=== PATIENT | female | born 1950 | race Caucasian/White ===

== ENCOUNTER 2021-11-11 10:50 | Inpatient (IN) | payer OTHER ==
[~2021-11-11] VITALS: Ht 162.6 cm; Wt 67.1 kg
[2021-11-11] MEDS ORDERED: ASPI-630 PO (11:21)
[2021-11-11] MEDS ORDERED: CETI10TA16 PO (11:21)
[2021-11-11] MEDS ORDERED: DIPH25TA26 PO (11:21)
[2021-11-11] MEDS ORDERED: DULO60CA7 PO (11:21)
[2021-11-11] MEDS ORDERED: ARIP10TA9 PO (11:21)
[2021-11-11] MEDS ORDERED: ACET325T21 PO (11:21)
[2021-11-11] MEDS ORDERED: CALC11776 PO (11:44)
[2021-11-11] MEDS ORDERED: LEVE500T56 PO (11:44)
[2021-11-11] MEDS ORDERED: SELE120S2 TP (11:44)
[2021-11-11] MEDS ORDERED: RIVA20TA2 PO (11:44)
[2021-11-11] MEDS ORDERED: OMEP20TA63 PO (11:44)
[2021-11-11] MEDS ORDERED: SENN1TAB99 PO (11:44)
[2021-11-11] MEDS ORDERED: SITA50TA PO (11:44)
[2021-11-11] MEDS ORDERED: METF10007 PO (11:44)
[2021-11-11] MEDS ORDERED: LEVO100T5 PO (11:44)
[2021-11-11] MEDS ORDERED: MAGN24003 PO (11:44)
[2021-11-11 14:27] VITALS: BP 124/70
[2021-11-11] MEDS ORDERED: METHYL SALICYLATE/MENTHOL TOPICAL OINTMENT 57GM TUBE. TP PRN (15:15)
[2021-11-11] MEDS ORDERED: MAG HYDROX/AL HYDROX/SIMETH 30 ML ORAL.SUSP PO PRN (15:15)
[2021-11-11] MEDS ORDERED: ACETAMINOPHEN 325 MG TABLET PO PRN (15:15)
[2021-11-11] MEDS ORDERED: MAGNESIUM HYDROXIDE 2,400 MG/30 ML ORAL.SUSP. PO PRN (15:15)
[2021-11-11 15:42] VITALS: BP 124/70
[2021-11-11] MEDS ORDERED: CALCIUM CARBONATE 500 MG TAB.CHEW PO PRN (15:45)
[2021-11-11 16:36] LABS: BASO # 0.1 x10^3/uL (0.0-0.2); BASO % 1 % (0-3); EOS # 0.2 x10^3/uL (0.0-0.7); EOS % 2 % (0-3); HEMATOCRIT 42.6 % (36.0-47.0); HEMOGLOBIN 13.9 g/dL (12.0-15.5); LYMPH % 22 % (24-48); MEAN CORPUSCULAR HEMOGLOBIN 29 pg (25-35); MEAN CORPUSCULAR HGB CONC 33 g/dL (31-37); MEAN CORPUSCULAR VOLUME 88 fL (79-100); MONO # 0.7 x10^3/uL (0.0-1.1); MONO % 8 % (0-9); NEUT % 67 % (31-73); PLATELET COUNT 221 x10^3/uL (140-400); RED BLOOD COUNT 4.83 x10^6/uL (3.50-5.40); RED CELL DISTRIBUTION WIDTH 13.5 % (11.5-14.5)
[2021-11-11 16:50] LABS: ALBUMIN 3.1 g/dL (3.4-5.0); ALBUMIN/GLOBULIN RATIO 0.8 (1.0-1.7); CALCIUM 9.9 mg/dL (8.5-10.1); MAGNESIUM 1.9 mg/dL (1.8-2.4); POTASSIUM 3.7 mmol/L (3.5-5.1); TOTAL BILIRUBIN 0.1 mg/dL (0.2-1.0); TOTAL PROTEIN 7.2 g/dL (6.4-8.2)
[2021-11-11] MEDS: NYSTATIN TOPICAL POWDER 15GM BOTTLE. TP SCH (20:15)
[2021-11-11] MEDS: SENNOSIDES/DOCUSATE 8.6/50MG TABLET. PO SCH ×2 (20:15→21:00)
[2021-11-11] MEDS: DULoxetine HCL 60 MG CAPSULE.DR PO SCH ×2 (20:15→21:00)
[2021-11-11] MEDS: levETIRAcetam 500 MG TABLET PO SCH (20:15)
[2021-11-11] MEDS: ARIPiprazole 10 MG TABLET PO SCH (20:15)
[2021-11-11] MEDS: diphenhydrAMINE HCL 25 MG CAPSULE PO PRN (20:23)
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
[2021-11-12] MEDS: LEVOTHYROXINE 100 MCG TABLET PO SCH (05:24)
[2021-11-12 05:57] VITALS: BP 103/67
[2021-11-12] MEDS: PANTOPRAZOLE 40 MG TABLET. PO SCH ×2 (07:30→08:29)
[2021-11-12] MEDS: CETIRIZINE HCL 10 MG TABLET PO SCH ×2 (08:29→09:00)
[2021-11-12] MEDS: DULoxetine HCL 60 MG CAPSULE.DR PO SCH ×3 (08:29→09:08)
[2021-11-12] MEDS: ASPIRIN CHEWABLE 81 MG TABLET. PO SCH ×2 (08:29→09:00)
[2021-11-12] MEDS: SENNOSIDES/DOCUSATE 8.6/50MG TABLET. PO SCH ×3 (08:30→19:43)
[2021-11-12] MEDS: RIVAROXABAN 10 MG TABLET. PO SCH ×2 (08:30→09:00)
[2021-11-12] MEDS: levETIRAcetam 500 MG TABLET PO SCH ×3 (08:30→19:44)
[2021-11-12] MEDS: NYSTATIN TOPICAL POWDER 15GM BOTTLE. TP SCH ×3 (08:31→09:09)
[2021-11-12] MEDS: LINAGLIPTIN 5 MG TABLET PO SCH (09:00)
[2021-11-12 16:24] VITALS: BP 95/60
[2021-11-12 16:54] LABS: CHOLESTEROL/HDL RATIO 8.3; HDLC 27 mg/dL (40-60); THYROID STIM HORMONE (TSH) 5.423 uIU/mL (0.358-3.740); TRIGLYCERIDES 536 mg/dL (0-150); VLDLC 107 mg/dL (0-40)
[2021-11-12] MEDS ORDERED: traZODone 50 MG TABLET. PO PRN (17:15)
[2021-11-12] MEDS: metFORMIN 500 MG TABLET PO SCH (17:30)
[2021-11-12] MEDS: CHOLECALCIFEROL (VITAMIN D3) 50,000 UNIT CAPSULE PO SCH (18:00)
--- NOTE | 2021-11-12 19:16 | EKG ---
[address] [address] Test Date: 2021-11-11 Test Time: 20:29:28 Pat Name: FAHEEM BACON Department: Room: [address] [place] [address] Gender: F First Cook: : 1950 Requested By: JULIANE TOTH Order Number: [id number] Reading MD: Magan Rojo Measurements Intervals [place] Rate: 76 P: MD: QRS: 52 QRSD: 74 T: -41 QT: 362 QTc: 411 Interpretive Statements SINUS RHYTHM LOW LIMB LEAD VOLTAGE T ABNORMALITY IN ANTERIOR LEADS INFEROLATERAL LEADS ABNORMAL ECG RI6.01 No previous ECG available for comparison Electronically Signed On 11-13-2021 13:07:06 PHYSICAL THERAPY NURSE by Magan Rojo
[2021-11-12] MEDS: ARIPiprazole 10 MG TABLET PO SCH (19:44)
--- NOTE | 2021-11-12 23:50 | PN ---
DATE: 11/12/2021 SUBJECTIVE: The patient was seen today, met with the staff. Chart was reviewed and also covering for Dr. Robertson. Staff continues to report that she is noncommunicative most of the time except for monosyllabic answers. The patient tends to isolate herself in her room. The patient apparently has some involuntary movements and myoclonic jerks. The patient appears to be confused, but staff reports sometimes she is clear when she talks, able to let the staff know her needs. Also, report from the residential, the patient's behavior is mostly behavioral and not presented with any major medical issues when she was there. OBSERVATION: VITAL SIGNS: Temperature 97.2, blood pressure 103/67, pulse 65, respirations 18, O2 sat 95%. Slept about 3 hours last night. LABORATORY DATA: The patient's lab reviewed. Blood glucose was 196, BUN 24. Iron 32. Triglycerides 536. Cholesterol 223, HDL 27. CURRENT MEDICATIONS: Trazodone 50 mg at night p.r.n., Cymbalta 60 mg twice a day, Abilify 10 mg at night. The patient is not having any side effects to medications. The patient continues to exhibit behaviors including social isolation, staying in bed, poor eye contact and not wanting to communicate. The patient had problems with her speech. The patient's family, apparently she has 3 siblings. The patient apparently moved here 3 years ago from [place]. The patient apparently has been having problems with anxiety since his 30s. The patient has 5 sons. The patient was a smoker, used to smoke about 2-1/2 packs daily. The patient apparently had different jobs in the past and no history of any other substance abuse. ASSESSMENT: 1. Major depressive disorder, recurrent, moderate to severe. 2. Cognitive disorder, mild. 3. Mood disorder, unspecified. PLAN: Continue with the current treatment plan. LENGTH OF STAY: 7-[address]: Karime TID: [id number]
--- NOTE | 2021-11-12 23:57 | CONS ---
DATE OF CONSULTATION: 11/12/2021 REASON FOR CONSULTATION: Medical management. HISTORY OF PRESENT ILLNESS: The patient is a 71-year-old female patient, a resident at [facility] where she has been a resident for the past 2 years. The patient apparently has been refusing to eat, refusing to her medications, withdrawn with marked psychomotor retardation, depressed, sleeping up to 12 hours a day. The patient has refused to answer any of my questions, was sitting in her wheelchair, eating her dinner and asked to go back to bed and has not answered any of my questions. She was clearly irritable and scratching her head, and moving her right lower extremity constantly. Whether this is some kind of behavior or need to look into her more closely is remains to be determined. PAST MEDICAL HISTORY: Significant for chronic obstructive pulmonary disease, hypertension, history of cerebrovascular accident, type 2 diabetes mellitus, hyperlipidemia, seizure disorder, gastroesophageal reflux disease, and hypothyroidism. PAST SURGICAL HISTORY: Unobtainable. FAMILY HISTORY: Noncontributory. SOCIAL HISTORY: She is apparently a resident at [facility]. No further information are obtainable from the patient or from the medical record. ALLERGIES: SHE IS ALLERGIC TO CODEINE, SULFA, DEMEROL, DARVON, PEANUTS, AND CITRUS. MEDICATIONS: She is currently on the following medications: She is on diphenhydramine 25 mg every 6 hours, cetirizine 10 mg daily, rivaroxaban 20 mg daily, aspirin 81 mg once a day, acetaminophen 650 mg every 8 hours, Keppra 500 mg twice a day, duloxetine 60 mg twice a day, aripiprazole for Abilify 10 mg at bedtime, calcium carbonate 470 mg every 4 hours, magnesium hydroxide 15 mL p.o. daily, Senna-S 1 tablet twice a day, omeprazole for Prilosec caag-fuk-aialbly 20 mg daily, metformin 1000 mg twice a day with meals, sitagliptin phosphate 50 mg daily. She is on levothyroxine sodium 100 mg daily and selenium sulfide weekly. REVIEW OF SYSTEMS: Unobtainable. PHYSICAL EXAMINATION: GENERAL: When I saw her this evening, she was sitting initially in her wheelchair comfortably, in no apparent respiratory distress. There are no pallor, jaundice, or cyanosis. No lymphadenopathy, no thyromegaly, no jugular venous distention. No lower limb edema. VITAL SIGNS: Her heart rate was 60, blood pressure was 95/60, temperature 97.7, respiratory rate was 16, and oxygen saturation was 95%. HEAD, EYES, EARS, NOSE, AND THROAT: Normocephalic, atraumatic. NECK: Supple. HEART: Normal first and second heart sounds, no gallop or murmur. CHEST: Clear to auscultation, no crepitation or rhonchi. ABDOMEN: Distended, soft, nontender. NEUROLOGIC: She is awake, alert, able to make her needs known, and all her cranial nerves seem to be grossly intact. She seemed to be able to move her right upper and right lower extremity more readily than her left upper and left lower extremity. She is mostly bedbound, chair bound. LABORATORY DATA: Her white cell count was 9000, hemoglobin 14, hematocrit 42, MCV 88, and platelet count 221,000. Her chemistry showed a serum sodium 141, potassium 3.7, chloride 106, bicarbonate 22, anion gap of 13, BUN 24, creatinine 1, estimated GFR was 55 mL per minute. Her glucose was 196, calcium was 9.9, magnesium was 1.9. Serum iron was 32, TIBC was 297 and percent saturation was 11. Her total bilirubin, AST, ALT, alkaline phosphatase were normal. Her total protein was 7.2, albumin was 3.1. Her serum triglycerides was high at 536. Total cholesterol was 223, LDL cholesterol was unmeasurable, VLDL was 107, HDL cholesterol was 27, the ratio was 8.3. Her vitamin B12 was 650 picograms per mL, 25-hydroxy vitamin D was 23.5, and TSH was slightly high at 5.423. Her D-dimer was high at 2.84 mg per liter and Treponema pallidum antibodies were nonreactive. ASSESSMENT AND PLAN: In summary, this is a 71-year-old female patient, a resident at [facility] who was admitted to [facility] on account of refusing to eat, refusing her medications, withdrawn, marked psychomotor retardation, depressed, sleeping up to 12 hours a day. She is refusing to answer any questions and does not make any eye contact. Medically, she has multiple medical problems including chronic obstructive pulmonary disease, hypertension, history of cerebrovascular accident. She seemed to be able to move her right upper and right lower extremities more readily than the left upper and left lower extremity. She is mostly wheelchair bound. She has type 2 diabetes mellitus that seems to be poorly controlled and hyperlipidemia that is also poorly controlled, seizure disorder on Keppra, gastroesophageal reflux disease, and hypothyroidism. Of note, her blood pressure is actually well controlled; however, the outstanding abnormalities are poorly controlled type 2 diabetes mellitus and also her serum triglycerides and total cholesterol is extremely high, and she has also low vitamin D and slightly elevated TSH at 5.423. My plan is to start her on cholecalciferol 50,000 units once a week. I also will check T3, T4, free T4 and adjust her levothyroxine higher. As far as her triglycerides, obviously better control of her blood sugar will normalize his elevated triglycerides. Thank you, Dr. Robertson, for allowing me to participate in the care of this patient. DONNELL/CHELO DR: Maliha TID: [id number]
[2021-11-13] MEDS: LEVOTHYROXINE 100 MCG TABLET PO SCH (06:00)
[2021-11-13 06:17] VITALS: BP 109/72
[2021-11-13 07:14] LABS: BACTERIA,URINE MANY /HPF (0-FEW); BILIRUBIN,URINE NEG (NEG); CLARITY,URINE CLEAR; COLOR,URINE YELLOW; GLUCOSE,URINE NEG (NEG); HYALINE CASTS, URINE FEW /HPF; NITRITE,URINE POS (NEG); SQUAMOUS EPITHELIAL CELL,UR MOD /LPF; UROBILINOGEN,URINE 0.2 mg/dL (0.2 mg/dL)
[2021-11-13] MEDS: ASPIRIN CHEWABLE 81 MG TABLET. PO SCH (08:03)
[2021-11-13] MEDS: levETIRAcetam 500 MG TABLET PO SCH ×2 (08:03→19:36)
[2021-11-13] MEDS: RIVAROXABAN 10 MG TABLET. PO SCH (08:03)
[2021-11-13] MEDS: DULoxetine HCL 60 MG CAPSULE.DR PO SCH ×2 (08:03→19:36)
[2021-11-13] MEDS: LINAGLIPTIN 5 MG TABLET PO SCH (08:03)
[2021-11-13] MEDS: SENNOSIDES/DOCUSATE 8.6/50MG TABLET. PO SCH ×2 (08:03→19:36)
[2021-11-13] MEDS: CETIRIZINE HCL 10 MG TABLET PO SCH (08:03)
[2021-11-13] MEDS: PANTOPRAZOLE 40 MG TABLET. PO SCH (08:03)
[2021-11-13] MEDS: metFORMIN 500 MG TABLET PO SCH ×2 (08:06→17:09)
[2021-11-13] MEDS: SELENIUM SULFIDE 1% TOPICAL SHAMPOO 207ML BOTTLE. TP SCH (09:00)
[2021-11-13 15:58] VITALS: BP 102/64
[2021-11-13] MEDS: ARIPiprazole 10 MG TABLET PO SCH (19:36)
[2021-11-13] MEDS: NYSTATIN 100,000 UNIT/GM TOPICAL CREAM 15GM TUBE. TP SCH (19:54)
[2021-11-14 01:07] LABS: THYROXINE 5.3 ug/dL (4.5-12.0)
--- NOTE | 2021-11-14 02:42 | PN ---
DATE: 11/13/2021 SUBJECTIVE: The patient was seen today, met with the staff. Chart reviewed and also participated in the treatment review meeting. Staff reports increased behavior problems, refusing to interact with the staff, avoids eye contact and also gets agitated easily, sometimes pulling her hair. The patient also having mood swings, angry outburst and also refusing to hold a conversation. Staff also observed she is having involuntary movements of her lower extremities. OBSERVATION: VITAL SIGNS: Temperature 97.2, blood pressure 109/72, pulse 58, respirations 16, O2 sat 94%. Slept about 1-1/2 hours last night. The patient's appetite decreased. The patient's lab reviewed. CURRENT MEDICATIONS: Trazodone 50 mg at night, Cymbalta 60 mg twice a day, Abilify 10 mg daily. The patient currently not participating in any activities. ASSESSMENT: 1. Major depressive disorder, recurrent, moderate to severe. 2. Cognitive disorder, mild. 3. Mood disorder, unspecified. PLAN: To continue with treatment. LENGTH OF STAY: 7-[address]: Karime TID: [id number]
[2021-11-14 05:38] VITALS: BP 110/73
[2021-11-14] MEDS: SENNOSIDES/DOCUSATE 8.6/50MG TABLET. PO SCH ×3 (10:09→20:30)
[2021-11-14] MEDS: ASPIRIN CHEWABLE 81 MG TABLET. PO SCH ×2 (10:09→10:15)
[2021-11-14] MEDS: metFORMIN 500 MG TABLET PO SCH ×3 (10:09→17:00)
[2021-11-14] MEDS: LINAGLIPTIN 5 MG TABLET PO SCH ×2 (10:09→10:15)
[2021-11-14] MEDS: PANTOPRAZOLE 40 MG TABLET. PO SCH ×2 (10:09→10:15)
[2021-11-14] MEDS: levETIRAcetam 500 MG TABLET PO SCH ×3 (10:09→20:28)
[2021-11-14] MEDS: DULoxetine HCL 60 MG CAPSULE.DR PO SCH ×3 (10:10→20:30)
[2021-11-14] MEDS: LEVOTHYROXINE 100 MCG TABLET PO SCH ×2 (10:10→10:20)
[2021-11-14] MEDS: RIVAROXABAN 10 MG TABLET. PO SCH ×2 (10:10→10:15)
[2021-11-14] MEDS: CETIRIZINE HCL 10 MG TABLET PO SCH ×2 (10:10→10:15)
[2021-11-14] MEDS: NYSTATIN 100,000 UNIT/GM TOPICAL CREAM 15GM TUBE. TP SCH ×2 (10:15→20:30)
[2021-11-14 15:17] VITALS: BP 110/65
[2021-11-14] MEDS: ARIPiprazole 10 MG TABLET PO SCH (20:28)
[2021-11-14] MEDS: diphenhydrAMINE HCL 25 MG CAPSULE PO PRN (20:29)
--- NOTE | 2021-11-14 23:05 | PN ---
DATE: 11/14/2021 SUBJECTIVE: The patient was seen today, met with the staff. Chart was reviewed am covering for Dr. Robertson. Staff reports continued behavior problems, noncommunicative, highly anxious, difficult to redirect, also resisted to take medications. The patient apparently has one episode of loose stools. The patient stays in her room most of the time. OBSERVATION: VITAL SIGNS: Temperature 97.8, blood pressure 110/73, pulse is 70, respirations 20 and O2 sat 94%. GENERAL: Slept about 7 hours last night. The patient's appetite decreased. LABORATORY DATA: The patient's lab reviewed CURRENT MEDICATIONS: Include trazodone 50 mg at night, Cymbalta 60 mg twice a day and Abilify 10 mg daily. The patient is also on Keppra 500 mg b.i.d. for seizures. The patient's labs were within normal range except for elevated blood sugar. ASSESSMENT: 1. Major depressive disorder, recurrent, moderate to severe. 2. Cognitive disorder, mild. 3. Mood disorder, unspecified. PLAN: To continue with treatment. LENGTH OF STAY: 7-[address]: Karime TID: [id number]
[2021-11-15] MEDS: LEVOTHYROXINE 100 MCG TABLET PO SCH (05:24)
[2021-11-15 06:35] VITALS: BP 108/68
[2021-11-15] MEDS: ASPIRIN CHEWABLE 81 MG TABLET. PO SCH (08:34)
[2021-11-15] MEDS: CETIRIZINE HCL 10 MG TABLET PO SCH (08:34)
[2021-11-15] MEDS: DULoxetine HCL 60 MG CAPSULE.DR PO SCH ×2 (08:34→20:12)
[2021-11-15] MEDS: RIVAROXABAN 10 MG TABLET. PO SCH (08:34)
[2021-11-15] MEDS: SENNOSIDES/DOCUSATE 8.6/50MG TABLET. PO SCH ×2 (08:34→20:12)
[2021-11-15] MEDS: levETIRAcetam 500 MG TABLET PO SCH ×2 (08:34→20:11)
[2021-11-15] MEDS: metFORMIN 500 MG TABLET PO SCH ×2 (08:34→17:00)
[2021-11-15] MEDS: PANTOPRAZOLE 40 MG TABLET. PO SCH (08:34)
[2021-11-15] MEDS: LINAGLIPTIN 5 MG TABLET PO SCH (08:34)
[2021-11-15] MEDS: NYSTATIN 100,000 UNIT/GM TOPICAL CREAM 15GM TUBE. TP SCH ×2 (09:00→20:12)
[2021-11-15 15:50] VITALS: BP 122/74
--- NOTE | 2021-11-15 19:57 | PN ---
DATE: 11/15/2021 SUBJECTIVE: The patient was seen today, met with the staff. Chart reviewed and covering for Dr. Robertson. The patient continues to be withdrawn, stays in her bed. Avoids eye contact, refusing to interact with the staff or residents and also refusing to interact, refusing to answer any questions. The patient has brief periods where she is able to open her eyes and answer mostly monosyllabic, rest of the time she avoids people. The patient also gets angry for no apparent reason. OBSERVATION: VITAL SIGNS: Temperature 97.4, blood pressure 108/68, pulse 67, respirations 16, O2 sat 96%. GENERAL: Slept about 10 hours last night. The patient's appetite decreased. CURRENT MEDICATIONS: The patient's current medications include trazodone 50 mg at night, Cymbalta 60 mg twice a day and Abilify 10 mg daily. The patient is not having any side effects to medications. ASSESSMENT: 1. Major depressive disorder, recurrent, moderate to severe. 2. Cognitive disorder, mild. 3. Mood disorder, unspecified. PLAN: To continue with the treatment. LENGTH OF STAY: 7-[address]: Karime TID: [id number]
[2021-11-15] MEDS: ARIPiprazole 10 MG TABLET PO SCH (20:11)
[2021-11-15] MEDS: diphenhydrAMINE HCL 25 MG CAPSULE PO PRN (20:12)
[2021-11-15] MEDS: CEFDINIR 300 MG CAPSULE PO SCH (20:12)
[2021-11-16] MEDS: LEVOTHYROXINE 100 MCG TABLET PO SCH (05:44)
[2021-11-16 05:47] VITALS: BP 133/80
[2021-11-16] MEDS: DULoxetine HCL 60 MG CAPSULE.DR PO SCH (08:01)
[2021-11-16] MEDS: CETIRIZINE HCL 10 MG TABLET PO SCH (08:01)
[2021-11-16] MEDS: CEFDINIR 300 MG CAPSULE PO SCH ×2 (08:01→20:22)
[2021-11-16] MEDS: LINAGLIPTIN 5 MG TABLET PO SCH (08:01)
[2021-11-16] MEDS: SENNOSIDES/DOCUSATE 8.6/50MG TABLET. PO SCH ×2 (08:01→20:22)
[2021-11-16] MEDS: metFORMIN 500 MG TABLET PO SCH ×2 (08:01→17:00)
[2021-11-16] MEDS: RIVAROXABAN 10 MG TABLET. PO SCH (08:01)
[2021-11-16] MEDS: levETIRAcetam 500 MG TABLET PO SCH ×2 (08:01→20:22)
[2021-11-16] MEDS: ASPIRIN CHEWABLE 81 MG TABLET. PO SCH (08:02)
[2021-11-16] MEDS: PANTOPRAZOLE 40 MG TABLET. PO SCH (08:02)
[2021-11-16] MEDS: NYSTATIN 100,000 UNIT/GM TOPICAL CREAM 15GM TUBE. TP SCH ×2 (09:00→20:22)
[2021-11-16 15:44] VITALS: BP 101/67
[2021-11-16] MEDS: ARIPiprazole 10 MG TABLET PO SCH (20:22)
[2021-11-16] MEDS: LACTOBACILLUS RHAMNOSUS GG 1 CAPSULE. PO SCH (20:22)
[2021-11-16] MEDS: diphenhydrAMINE HCL 25 MG CAPSULE PO PRN (20:23)
--- NOTE | 2021-11-16 21:42 | PDOC ---
Exam Note: Lewis Note: Please also refer to the separate dictated note~for this date of service dictated separately.~Patient seen individually. Discussed the patient with Nursing staff reviewed the chart.~Reviewed interim history and current functioning. Reviewed vital signs,~Labs/ Radiology~and current medications noted below. Continue current treatment with the changes noted in the dictated addendum note Assessment: Vital Signs/I&O: Vital Signs Date Time Temp Pulse Resp B/P (MAP) Pulse Ox O2 Delivery O2 Flow Rate FiO2 11/16/21 15:44 97.5 73 20 101/67 (78) 94 11/14/21 05:38 Room Air I & O 11/15/21 11/15/21 11/16/21 15:00 23:00 07:00 Intake Total 820 ml 420 ml Balance 820 ml 420 ml Labs: Laboratory Tests Test 11/16/21 07:39 Glucose (Fingerstick) 159 mg/dL (70-99) H Current Medications: Meds: Laboratory Tests Test 11/16/21 07:39 Glucose (Fingerstick) 159 mg/dL Current Medications Medications (Trade) Dose Ordered Sig/Ro Route PRN Reason Start Time Stop Time Status Last Admin Dose Admin Acetaminophen (Tylenol) 650 mg PRN Q6HRS PRN PO MILD PAIN / TEMP > 100.3'F 11/11/21 15:15 Multi-Ingredient Ointment (Analgesic [place]) 1 erik PRN QID PRN TP MUSCLE PAIN 11/11/21 15:15 Al Hydroxide/Mg Hydroxide (Mylanta Plus Xs) 15 ml PRN AFTMEALHC PRN PO DYSPEPSIA 11/11/21 15:15 Magnesium Hydroxide (Milk Of Magnesia) 2,400 mg PRN QHS PRN PO CONSTIPATION 11/11/21 15:15 Aripiprazole (Abilify) 10 mg HS PO 11/11/21 21:00 11/16/21 20:22 Aspirin (Aspirin Chewable) 81 mg DAILY PO 11/12/21 09:00 11/16/21 08:02 Cetirizine HCl (ZyrTEC) 10 mg DAILY PO 11/12/21 09:00 11/16/21 08:01 Duloxetine HCl (Cymbalta) 60 mg BID PO 11/11/21 21:00 11/16/21 18:51 DC 11/16/21 08:01 Levetiracetam (Keppra) 500 mg BID PO 11/11/21 21:00 11/16/21 20:22 Levothyroxine Sodium (Synthroid) 100 mcg DAILY06 PO 11/12/21 06:00 11/16/21 05:44 Senna/Docusate Sodium (Senna Plus) 1 tab BID PO 11/11/21 21:00 11/16/21 20:22 Calcium Carbonate/ Glycine (Tums) 500 mg PRN Q4HRS PRN PO INDIGESTION 11/11/21 15:45 Diphenhydramine HCl (Benadryl) 25 mg PRN Q6HRS PRN PO ALLERGIES 11/11/21 15:45 11/16/21 20:23 Metformin HCl (Glucophage) 1,000 mg BIDWMEALS PO 11/12/21 17:30 11/16/21 08:01 Pantoprazole Sodium (Protonix) 40 mg DAILYAC PO 11/12/21 07:30 11/16/21 08:02 Rivaroxaban (Xarelto) 20 mg DAILY PO 11/12/21 09:00 11/16/21 08:01 Selenium Sulfide (Selsun) 1 erik WEEKLY TP 11/13/21 09:00 Linagliptin (Tradjenta) 5 mg DAILY PO 11/12/21 09:00 11/16/21 08:01 Nystatin (Nystop) 1 erik BID TP 11/11/21 21:00 11/13/21 17:18 DC 11/12/21 08:31 Trazodone HCl (Desyrel) 50 mg PRN QHS PRN PO insomnia 11/12/21 17:15 Vitamin D (Vitamin D3) 50,000 unit WEEKLY PO 11/12/21 18:00 Nystatin (Mycostatin) 1 eirk BID TP 11/13/21 21:00 11/15/21 20:12 Cefdinir (Omnicef) 300 mg BID PO 11/15/21 21:00 11/21/21 22:00 11/16/21 20:22 Lactobacillus Rhamnosus (Culturelle) 1 cap BID PO 11/16/21 21:00 Duloxetine HCl (Cymbalta) 60 mg DAILY PO 11/17/21 09:00 Bupropion HCl (Wellbutrin Xl) 150 mg DAILY PO 11/17/21 09:00 11/19/21 18:00 Bupropion HCl (Wellbutrin Xl) 300 mg DAILY PO 11/20/21 09:00 I have reviewed the current psychotropics carefully including drug interactions. Risk benefit ratio favors no change other than as noted in my dictated progress note. Diagnosis: Problems: (1) Schizoaffective disorder PILY MARQUEZ MD Nov 16, 2021 21:42
[2021-11-17] MEDS: LEVOTHYROXINE 100 MCG TABLET PO SCH (05:54)
[2021-11-17] MEDS: levETIRAcetam 500 MG TABLET PO SCH ×2 (05:54→20:10)
[2021-11-17] MEDS: CEFDINIR 300 MG CAPSULE PO SCH ×2 (05:54→20:10)
[2021-11-17 06:05] VITALS: BP 97/60
[2021-11-17] MEDS: metFORMIN 500 MG TABLET PO SCH ×2 (08:35→17:03)
[2021-11-17] MEDS: DULoxetine HCL 60 MG CAPSULE.DR PO SCH (08:36)
[2021-11-17] MEDS: LINAGLIPTIN 5 MG TABLET PO SCH (08:36)
[2021-11-17] MEDS: ASPIRIN CHEWABLE 81 MG TABLET. PO SCH (08:36)
[2021-11-17] MEDS: LACTOBACILLUS RHAMNOSUS GG 1 CAPSULE. PO SCH ×2 (08:36→20:10)
[2021-11-17] MEDS: SENNOSIDES/DOCUSATE 8.6/50MG TABLET. PO SCH ×2 (08:36→20:10)
[2021-11-17] MEDS: PANTOPRAZOLE 40 MG TABLET. PO SCH (08:37)
[2021-11-17] MEDS: RIVAROXABAN 10 MG TABLET. PO SCH (08:37)
[2021-11-17] MEDS: CETIRIZINE HCL 10 MG TABLET PO SCH (08:37)
[2021-11-17] MEDS ORDERED: buPROPion XL 150 MG TAB.ER.24H PO SCH (09:00)
[2021-11-17] MEDS: NYSTATIN 100,000 UNIT/GM TOPICAL CREAM 15GM TUBE. TP SCH ×2 (09:00→20:11)
[2021-11-17 15:48] VITALS: BP 102/65
[2021-11-17] MEDS: ARIPiprazole 10 MG TABLET PO SCH (20:10)
--- NOTE | 2021-11-17 21:36 | PDOC ---
Exam Note: Lewis Note: Please also refer to the separate dictated note~for this date of service dictated separately.~Patient seen individually. Discussed the patient with Nursing staff reviewed the chart.~Reviewed interim history and current functioning. Reviewed vital signs,~Labs/ Radiology~and current medications noted below. Continue current treatment with the changes noted in the dictated addendum note Assessment: Vital Signs/I&O: Vital Signs Date Time Temp Pulse Resp B/P (MAP) Pulse Ox O2 Delivery O2 Flow Rate FiO2 11/17/21 15:48 97.6 71 18 102/65 (77) 96 11/14/21 05:38 Room Air I & O 11/16/21 11/16/21 11/17/21 15:00 23:00 07:00 Intake Total 600 ml 0 ml 120 ml Balance 600 ml 0 ml 120 ml Labs: Laboratory Tests Test 11/17/21 07:32 Glucose (Fingerstick) 171 mg/dL (70-99) H Current Medications: Meds: Laboratory Tests Test 11/17/21 07:32 Glucose (Fingerstick) 171 mg/dL Current Medications Medications (Trade) Dose Ordered Sig/Ro Route PRN Reason Start Time Stop Time Status Last Admin Dose Admin Acetaminophen (Tylenol) 650 mg PRN Q6HRS PRN PO MILD PAIN / TEMP > 100.3'F 11/11/21 15:15 Multi-Ingredient Ointment (Analgesic [place]) 1 erik PRN QID PRN TP MUSCLE PAIN 11/11/21 15:15 Al Hydroxide/Mg Hydroxide (Mylanta Plus Xs) 15 ml PRN AFTMEALHC PRN PO DYSPEPSIA 11/11/21 15:15 Magnesium Hydroxide (Milk Of Magnesia) 2,400 mg PRN QHS PRN PO CONSTIPATION 11/11/21 15:15 Aripiprazole (Abilify) 10 mg HS PO 11/11/21 21:00 11/17/21 20:10 Aspirin (Aspirin Chewable) 81 mg DAILY PO 11/12/21 09:00 11/17/21 08:36 Cetirizine HCl (ZyrTEC) 10 mg DAILY PO 11/12/21 09:00 11/17/21 08:37 Duloxetine HCl (Cymbalta) 60 mg BID PO 11/11/21 21:00 11/16/21 18:51 DC 11/16/21 08:01 Levetiracetam (Keppra) 500 mg BID PO 11/11/21 21:00 11/17/21 20:10 Levothyroxine Sodium (Synthroid) 100 mcg DAILY06 PO 11/12/21 06:00 11/17/21 05:54 Senna/Docusate Sodium (Senna Plus) 1 tab BID PO 11/11/21 21:00 11/17/21 20:10 Calcium Carbonate/ Glycine (Tums) 500 mg PRN Q4HRS PRN PO INDIGESTION 11/11/21 15:45 Diphenhydramine HCl (Benadryl) 25 mg PRN Q6HRS PRN PO ALLERGIES 11/11/21 15:45 11/16/21 20:23 Metformin HCl (Glucophage) 1,000 mg BIDWMEALS PO 11/12/21 17:30 11/17/21 17:03 Pantoprazole Sodium (Protonix) 40 mg DAILYAC PO 11/12/21 07:30 11/17/21 08:37 Rivaroxaban (Xarelto) 20 mg DAILY PO 11/12/21 09:00 11/17/21 08:37 Selenium Sulfide (Selsun) 1 erik WEEKLY TP 11/13/21 09:00 Linagliptin (Tradjenta) 5 mg DAILY PO 11/12/21 09:00 11/17/21 08:36 Nystatin (Nystop) 1 erik BID TP 11/11/21 21:00 11/13/21 17:18 DC 11/12/21 08:31 Trazodone HCl (Desyrel) 50 mg PRN QHS PRN PO insomnia 11/12/21 17:15 Vitamin D (Vitamin D3) 50,000 unit WEEKLY PO 11/12/21 18:00 Nystatin (Mycostatin) 1 erik BID TP 11/13/21 21:00 11/17/21 20:11 Cefdinir (Omnicef) 300 mg BID PO 11/15/21 21:00 11/21/21 22:00 11/17/21 20:10 Lactobacillus Rhamnosus (Culturelle) 1 cap BID PO 11/16/21 21:00 11/17/21 20:10 Duloxetine HCl (Cymbalta) 60 mg DAILY PO 11/17/21 09:00 11/17/21 08:36 Bupropion HCl (Wellbutrin Xl) 150 mg DAILY PO 11/17/21 09:00 11/17/21 16:39 DC 11/17/21 08:37 Bupropion HCl (Wellbutrin Xl) 300 mg DAILY PO 11/20/21 09:00 Bupropion HCl (Wellbutrin) 75 mg 0900,1200 PO 11/18/21 09:00 11/20/21 20:00 Bupropion HCl (Wellbutrin) 150 mg 0900,1200 PO 11/21/21 09:00 Current Medications Medications (Trade) Dose Ordered Sig/Ro Route PRN Reason Start Time Stop Time Status Last Admin Dose Admin Duloxetine HCl (Cymbalta) 60 mg DAILY PO 11/17/21 09:00 11/17/21 08:36 Bupropion HCl (Wellbutrin Xl) 150 mg DAILY PO 11/17/21 09:00 11/17/21 16:39 DC 11/17/21 08:37 I have reviewed the current psychotropics carefully including drug interactions. Risk benefit ratio favors no change other than as noted in my dictated progress note. Diagnosis: Problems: (1) Schizoaffective disorder PILY MARQUEZ MD Nov 17, 2021 21:36
[2021-11-18] MEDS: LEVOTHYROXINE 100 MCG TABLET PO SCH (05:10)
[2021-11-18 06:16] VITALS: BP 115/68
[2021-11-18 06:33] LABS: BASO % 1 % (0-3); EOS # 0.2 x10^3/uL (0.0-0.7); EOS % 3 % (0-3); HEMATOCRIT 37.5 % (36.0-47.0); HEMOGLOBIN 12.3 g/dL (12.0-15.5); LYMPH # 2.1 x10^3/uL (1.0-4.8); LYMPH % 23 % (24-48); MEAN CORPUSCULAR HEMOGLOBIN 29 pg (25-35); MEAN CORPUSCULAR HGB CONC 33 g/dL (31-37); MEAN CORPUSCULAR VOLUME 88 fL (79-100); MONO # 0.6 x10^3/uL (0.0-1.1); MONO % 7 % (0-9); NEUT # 5.8 x10^3uL (1.8-7.7); NEUT % 66 % (31-73); PLATELET COUNT 203 x10^3/uL (140-400); RED BLOOD COUNT 4.27 x10^6/uL (3.50-5.40); RED CELL DISTRIBUTION WIDTH 13.4 % (11.5-14.5); WHITE BLOOD COUNT 8.9 x10^3/uL (4.0-11.0)
[2021-11-18 06:37] LABS: ALBUMIN 2.7 g/dL (3.4-5.0); ALBUMIN/GLOBULIN RATIO 0.7 (1.0-1.7); CALCIUM 8.9 mg/dL (8.5-10.1); CREATININE 0.9 mg/dL (0.6-1.0); GFR 62.1; POTASSIUM 4.3 mmol/L (3.5-5.1); TOTAL BILIRUBIN 0.2 mg/dL (0.2-1.0); TOTAL PROTEIN 6.4 g/dL (6.4-8.2)
--- NOTE | 2021-11-18 07:57 | PDOC ---
Exam Note: Lewis Note: This note is a late entry for 11/16/2021 covers elements not covered in my initial note. Subjective: The patient was seen individually on 11/16/2021, discussed and reviewed the chart with Cecil MUELLER. Dr. Maciel had covered for me for the past two weeks and I have reviewed information, notes and records by Dr. Maciel. The unit is currently on lockdown for any admissions due to Covid-19 positive status. The patient slept 9 hours previous night. She was admitted on 11/11/2021 during my vacation by Dr. Maciel. She has diagnoses of schizoaffective disorder bipolar type and was residing at [facility] staying in bed all days, using medications and cares, lacking motivation, not talking to others, depressed, sleeping over 12 hours a day. She has continued some of this, still why she is here. I met with her in her room. Per nursing staff the patient has been playing [place] for the past 3 days, refusing medications. She did take the senior gl accountant Synthroid by the night nurse Mariluz and somewhat preferential in accepting medications with some nursing st aff and not others. Appetite is 50%. She is on Cefdinir for her UTI which ends on 11/21/21. Review of Systems: No CV, , pulmonary, eye, ENT system symptoms on review. Mental Status Exam: The patient was lying in bed, not very verbally interactive but eyes were open. Intellect average. Insight limited. Judgment impaired. Mood and affect depressed and she is somewhat paranoid, distractible. No suicidal or homicidal ideation. Laboratory Data: Reviewed. Impression: Schizoaffective disorder, bipolar type, depressed with psychotic features. Major depressive disorder, severe with psychotic features. Anxiety disorder unspecified. Impulse control disorder unspecified. Plan: I have carefully reviewed the patients current psychotropics as donavan rinaldi in my initial note, drug interactions and risk-benefit ratio. She is currently on Cymbalta 60 mg twice a day. Given her lack of motivation, apathy, tiredness, withdrawal, we will reduce this down to 60 mg once a day and add Wellbutrin XL 150 mg in the morning for 3 days and 300 mg a day thereafter to augment the Cymbalta. Continue Abilify 10 mg a day as an augmentation strategy for her antidepressants and Keppra for her seizure disorder and trazodone p.r.n. for insomnia. Assessment: Vital Signs/I&O: Vital Signs Date Time Temp Pulse Resp B/P (MAP) Pulse Ox O2 Delivery O2 Flow Rate FiO2 11/18/21 06:16 97.2 60 18 115/68 (84) 95 Room Air I & O 11/17/21 11/17/21 11/18/21 15:00 23:00 07:00 Intake Total 600 ml 480 ml 0 ml Balance 600 ml 480 ml 0 ml Labs: Laboratory Tests Test 11/18/21 06:09 11/18/21 07:25 White Blood Count 8.9 x10^3/uL (4.0-11.0) Red Blood Count 4.27 x10^6/uL (3.50-5.40) Hemoglobin 12.3 g/dL (12.0-15.5) Hematocrit 37.5 % (36.0-47.0) Mean Corpuscular Volume 88 fL (79-100) Mean Corpuscular Hemoglobin 29 pg (25-35) Mean Corpuscular Hemoglobin Concent 33 g/dL (31-37) Red Cell Distribution Width 13.4 % (11.5-14.5) Platelet Count 203 x10^3/uL (140-400) Neutrophils (%) (Auto) 66 % (31-73) Lymphocytes (%) (Auto) 23 % (24-48) L Monocytes (%) (Auto) 7 % (0-9) Eosinophils (%) (Auto) 3 % (0-3) Basophils (%) (Auto) 1 % (0-3) Neutrophils # (Auto) 5.8 x10^3uL (1.8-7.7) Lymphocytes # (Auto) 2.1 x10^3/uL (1.0-4.8) Monocytes # (Auto) 0.6 x10^3/uL (0.0-1.1) Eosinophils # (Auto) 0.2 x10^3/uL (0.0-0.7) Basophils # (Auto) 0.0 x10^3/uL (0.0-0.2) Sodium Level 140 mmol/L (136-145) Potassium Level 4.3 mmol/L (3.5-5.1) Chloride Level 106 mmol/L (98-107) Carbon Dioxide Level 25 mmol/L (21-32) Anion Gap 9 (6-14) Blood Urea Nitrogen 21 mg/dL (7-20) H Creatinine 0.9 mg/dL (0.6-1.0) Estimated GFR (Cockcroft-Gault) 62.1 BUN/Creatinine Ratio 23 (6-20) H Glucose Level 158 mg/dL (70-99) H Calcium Level 8.9 mg/dL (8.5-10.1) Total Bilirubin 0.2 mg/dL (0.2-1.0) Aspartate Amino Transferase (AST) 16 U/L (15-37) Alanine Aminotransferase (ALT) 20 U/L (14-59) Alkaline Phosphatase 90 U/L (46-116) Total Protein 6.4 g/dL (6.4-8.2) Albumin 2.7 g/dL (3.4-5.0) L Albumin/Globulin Ratio 0.7 (1.0-1.7) L Glucose (Fingerstick) 148 mg/dL (70-99) H Current Medications: Meds: Current Medications Medications (Trade) Dose Ordered Sig/Ro Route PRN Reason Start Time Stop Time Status Last Admin Dose Admin Duloxetine HCl (Cymbalta) 60 mg DAILY PO 11/17/21 09:00 11/17/21 08:36 Bupropion HCl (Wellbutrin Xl) 150 mg DAILY PO 11/17/21 09:00 11/17/21 16:39 DC 11/17/21 08:37 I have reviewed the current psychotropics carefully including drug interactions. Risk benefit ratio favors no change other than as noted in my dictated progress note. Diagnosis: Problems: (1) Schizoaffective disorder, bipolar type (2) Major depressive disorder with psychotic features (3) Anxiety disorder, unspecified (4) Impulse control disorder, unspecified (5) Schizoaffective disorder PILY MARQUEZ MD Nov 18, 2021 07:57
--- NOTE | 2021-11-18 08:16 | PDOC ---
Exam Note: Lewis Note: This note is a late entry for 11/17/2021 covers elements not covered in my initial note. Subjective: The patient was seen individually on 11/17/2021, discussed and reviewed the chart with Angelic MUELLER. The unit is currently on lockdown for any admissions due to Covid-19 positive status. The patient slept 7-1/4 hours previous night. The patient takes her medications crushed and we will change the Wellbutrin XL 150 mg a day to 75 mg a.m. and noon. Review of Systems: No CV, , pulmonary, eye, ENT system symptoms on review. Mental Status Exam: The patient is alert and oriented to herself. Speech has some latency, low in rate and rhythm, low in volume. Abstraction fair. Computation impaired. Language function intact. Mood and affect withdrawn. Laboratory Data: Reviewed. Impression: Schizoaffective disorder, bipolar type, depressed with psychotic features. Major depressive disorder, severe with psychotic features. Anxiety disorder unspecified. Impulse control disorder unspecified. Plan: Change the Wellbutrin XL to regular tablets 75 mg a.m. and noon, then 150 mg a.m. and noon thereafter. Maintain Abilify, Cymbalta, Keppra and trazodone. Assessment: Vital Signs/I&O: Vital Signs Date Time Temp Pulse Resp B/P (MAP) Pulse Ox O2 Delivery O2 Flow Rate FiO2 11/18/21 06:16 97.2 60 18 115/68 (84) 95 Room Air I & O 11/17/21 11/17/21 11/18/21 15:00 23:00 07:00 Intake Total 600 ml 480 ml 0 ml Balance 600 ml 480 ml 0 ml Labs: Laboratory Tests Test 11/18/21 06:09 11/18/21 07:25 White Blood Count 8.9 x10^3/uL (4.0-11.0) Red Blood Count 4.27 x10^6/uL (3.50-5.40) Hemoglobin 12.3 g/dL (12.0-15.5) Hematocrit 37.5 % (36.0-47.0) Mean Corpuscular Volume 88 fL (79-100) Mean Corpuscular Hemoglobin 29 pg (25-35) Mean Corpuscular Hemoglobin Concent 33 g/dL (31-37) Red Cell Distribution Width 13.4 % (11.5-14.5) Platelet Count 203 x10^3/uL (140-400) Neutrophils (%) (Auto) 66 % (31-73) Lymphocytes (%) (Auto) 23 % (24-48) L Monocytes (%) (Auto) 7 % (0-9) Eosinophils (%) (Auto) 3 % (0-3) Basophils (%) (Auto) 1 % (0-3) Neutrophils # (Auto) 5.8 x10^3uL (1.8-7.7) Lymphocytes # (Auto) 2.1 x10^3/uL (1.0-4.8) Monocytes # (Auto) 0.6 x10^3/uL (0.0-1.1) Eosinophils # (Auto) 0.2 x10^3/uL (0.0-0.7) Basophils # (Auto) 0.0 x10^3/uL (0.0-0.2) Sodium Level 140 mmol/L (136-145) Potassium Level 4.3 mmol/L (3.5-5.1) Chloride Level 106 mmol/L (98-107) Carbon Dioxide Level 25 mmol/L (21-32) Anion Gap 9 (6-14) Blood Urea Nitrogen 21 mg/dL (7-20) H Creatinine 0.9 mg/dL (0.6-1.0) Estimated GFR (Cockcroft-Gault) 62.1 BUN/Creatinine Ratio 23 (6-20) H Glucose Level 158 mg/dL (70-99) H Calcium Level 8.9 mg/dL (8.5-10.1) Total Bilirubin 0.2 mg/dL (0.2-1.0) Aspartate Amino Transferase (AST) 16 U/L (15-37) Alanine Aminotransferase (ALT) 20 U/L (14-59) Alkaline Phosphatase 90 U/L (46-116) Total Protein 6.4 g/dL (6.4-8.2) Albumin 2.7 g/dL (3.4-5.0) L Albumin/Globulin Ratio 0.7 (1.0-1.7) L Glucose (Fingerstick) 148 mg/dL (70-99) H Current Medications: Meds: Current Medications Medications (Trade) Dose Ordered Sig/Ro Route PRN Reason Start Time Stop Time Status Last Admin Dose Admin Duloxetine HCl (Cymbalta) 60 mg DAILY PO 11/17/21 09:00 11/17/21 08:36 Bupropion HCl (Wellbutrin Xl) 150 mg DAILY PO 11/17/21 09:00 11/17/21 16:39 DC 11/17/21 08:37 I have reviewed the current psychotropics carefully including drug interactions. Risk benefit ratio favors no change other than as noted in my dictated progress note. Diagnosis: Problems: (1) Schizoaffective disorder, bipolar type (2) Impulse control disorder, unspecified (3) Anxiety disorder, unspecified (4) Major depressive disorder with psychotic features PILY MARQUEZ MD Nov 18, 2021 08:16
[2021-11-18] MEDS: CEFDINIR 300 MG CAPSULE PO SCH ×2 (08:19→20:05)
[2021-11-18] MEDS: DULoxetine HCL 60 MG CAPSULE.DR PO SCH (08:19)
[2021-11-18] MEDS: metFORMIN 500 MG TABLET PO SCH ×2 (08:19→17:14)
[2021-11-18] MEDS: ASPIRIN CHEWABLE 81 MG TABLET. PO SCH (08:20)
[2021-11-18] MEDS: SENNOSIDES/DOCUSATE 8.6/50MG TABLET. PO SCH ×2 (08:20→20:04)
[2021-11-18] MEDS: levETIRAcetam 500 MG TABLET PO SCH ×2 (08:20→20:05)
[2021-11-18] MEDS: LACTOBACILLUS RHAMNOSUS GG 1 CAPSULE. PO SCH ×2 (08:20→20:04)
[2021-11-18] MEDS: PANTOPRAZOLE 40 MG TABLET. PO SCH (08:20)
[2021-11-18] MEDS: buPROPion 75 MG TABLET PO SCH ×2 (08:20→17:14)
[2021-11-18] MEDS: LINAGLIPTIN 5 MG TABLET PO SCH (08:20)
[2021-11-18] MEDS: RIVAROXABAN 10 MG TABLET. PO SCH (08:20)
[2021-11-18] MEDS: CETIRIZINE HCL 10 MG TABLET PO SCH (08:20)
[2021-11-18 15:48] VITALS: BP 112/71
[2021-11-18] MEDS: NYSTATIN 100,000 UNIT/GM TOPICAL CREAM 15GM TUBE. TP SCH ×2 (17:13→20:07)
[2021-11-18] MEDS: ARIPiprazole 10 MG TABLET PO SCH (20:04)
--- NOTE | 2021-11-18 21:31 | PDOC ---
Exam Note: Lewis Note: Please also refer to the separate dictated note~for this date of service dictated separately.~Patient seen individually. Discussed the patient with Nursing staff reviewed the chart.~Reviewed interim history and current functioning. Reviewed vital signs,~Labs/ Radiology~and current medications noted below. Continue current treatment with the changes noted in the dictated addendum note Assessment: Vital Signs/I&O: Vital Signs Date Time Temp Pulse Resp B/P (MAP) Pulse Ox O2 Delivery O2 Flow Rate FiO2 11/18/21 15:48 98.5 72 16 112/71 (85) 94 11/18/21 06:16 Room Air I & O 11/17/21 11/17/21 11/18/21 15:00 23:00 07:00 Intake Total 600 ml 480 ml 0 ml Balance 600 ml 480 ml 0 ml Labs: Laboratory Tests Test 11/18/21 06:09 11/18/21 07:25 White Blood Count 8.9 x10^3/uL (4.0-11.0) Red Blood Count 4.27 x10^6/uL (3.50-5.40) Hemoglobin 12.3 g/dL (12.0-15.5) Hematocrit 37.5 % (36.0-47.0) Mean Corpuscular Volume 88 fL (79-100) Mean Corpuscular Hemoglobin 29 pg (25-35) Mean Corpuscular Hemoglobin Concent 33 g/dL (31-37) Red Cell Distribution Width 13.4 % (11.5-14.5) Platelet Count 203 x10^3/uL (140-400) Neutrophils (%) (Auto) 66 % (31-73) Lymphocytes (%) (Auto) 23 % (24-48) L Monocytes (%) (Auto) 7 % (0-9) Eosinophils (%) (Auto) 3 % (0-3) Basophils (%) (Auto) 1 % (0-3) Neutrophils # (Auto) 5.8 x10^3uL (1.8-7.7) Lymphocytes # (Auto) 2.1 x10^3/uL (1.0-4.8) Monocytes # (Auto) 0.6 x10^3/uL (0.0-1.1) Eosinophils # (Auto) 0.2 x10^3/uL (0.0-0.7) Basophils # (Auto) 0.0 x10^3/uL (0.0-0.2) Sodium Level 140 mmol/L (136-145) Potassium Level 4.3 mmol/L (3.5-5.1) Chloride Level 106 mmol/L (98-107) Carbon Dioxide Level 25 mmol/L (21-32) Anion Gap 9 (6-14) Blood Urea Nitrogen 21 mg/dL (7-20) H Creatinine 0.9 mg/dL (0.6-1.0) Estimated GFR (Cockcroft-Gault) 62.1 BUN/Creatinine Ratio 23 (6-20) H Glucose Level 158 mg/dL (70-99) H Calcium Level 8.9 mg/dL (8.5-10.1) Total Bilirubin 0.2 mg/dL (0.2-1.0) Aspartate Amino Transferase (AST) 16 U/L (15-37) Alanine Aminotransferase (ALT) 20 U/L (14-59) Alkaline Phosphatase 90 U/L (46-116) Total Protein 6.4 g/dL (6.4-8.2) Albumin 2.7 g/dL (3.4-5.0) L Albumin/Globulin Ratio 0.7 (1.0-1.7) L Glucose (Fingerstick) 148 mg/dL (70-99) H Current Medications: Meds: Laboratory Tests Test 11/18/21 06:09 11/18/21 07:25 White Blood Count 8.9 x10^3/uL Red Blood Count 4.27 x10^6/uL Hemoglobin 12.3 g/dL Hematocrit 37.5 % Mean Corpuscular Volume 88 fL Mean Corpuscular Hemoglobin 29 pg Mean Corpuscular Hemoglobin Concent 33 g/dL Red Cell Distribution Width 13.4 % Platelet Count 203 x10^3/uL Neutrophils (%) (Auto) 66 % Lymphocytes (%) (Auto) 23 % Monocytes (%) (Auto) 7 % Eosinophils (%) (Auto) 3 % Basophils (%) (Auto) 1 % Neutrophils # (Auto) 5.8 x10^3uL Lymphocytes # (Auto) 2.1 x10^3/uL Monocytes # (Auto) 0.6 x10^3/uL Eosinophils # (Auto) 0.2 x10^3/uL Basophils # (Auto) 0.0 x10^3/uL Sodium Level 140 mmol/L Potassium Level 4.3 mmol/L Chloride Level 106 mmol/L Carbon Dioxide Level 25 mmol/L Anion Gap 9 Blood Urea Nitrogen 21 mg/dL Creatinine 0.9 mg/dL Estimated GFR (Cockcroft-Gault) 62.1 BUN/Creatinine Ratio 23 Glucose Level 158 mg/dL Calcium Level 8.9 mg/dL Total Bilirubin 0.2 mg/dL Aspartate Amino Transf (AST/SGOT) 16 U/L Alanine Aminotransferase (ALT/SGPT) 20 U/L Alkaline Phosphatase 90 U/L Total Protein 6.4 g/dL Albumin 2.7 g/dL Albumin/Globulin Ratio 0.7 Glucose (Fingerstick) 148 mg/dL Current Medications Medications (Trade) Dose Ordered Sig/Ro Route PRN Reason Start Time Stop Time Status Last Admin Dose Admin Acetaminophen (Tylenol) 650 mg PRN Q6HRS PRN PO MILD PAIN / TEMP > 100.3'F 11/11/21 15:15 Multi-Ingredient Ointment (Analgesic [place]) 1 erik PRN QID PRN TP MUSCLE PAIN 11/11/21 15:15 Al Hydroxide/Mg Hydroxide (Mylanta Plus Xs) 15 ml PRN AFTMEALHC PRN PO DYSPEPSIA 11/11/21 15:15 Magnesium Hydroxide (Milk Of Magnesia) 2,400 mg PRN QHS PRN PO CONSTIPATION 11/11/21 15:15 Aripiprazole (Abilify) 10 mg HS PO 11/11/21 21:00 11/18/21 20:04 Aspirin (Aspirin Chewable) 81 mg DAILY PO 11/12/21 09:00 11/18/21 08:20 Cetirizine HCl (ZyrTEC) 10 mg DAILY PO 11/12/21 09:00 11/18/21 08:20 Duloxetine HCl (Cymbalta) 60 mg BID PO 11/11/21 21:00 11/16/21 18:51 DC 11/16/21 08:01 Levetiracetam (Keppra) 500 mg BID PO 11/11/21 21:00 11/18/21 20:05 Levothyroxine Sodium (Synthroid) 100 mcg DAILY06 PO 11/12/21 06:00 11/18/21 05:10 Senna/Docusate Sodium (Senna Plus) 1 tab BID PO 11/11/21 21:00 11/18/21 20:04 Calcium Carbonate/ Glycine (Tums) 500 mg PRN Q4HRS PRN PO INDIGESTION 11/11/21 15:45 Diphenhydramine HCl (Benadryl) 25 mg PRN Q6HRS PRN PO ALLERGIES 11/11/21 15:45 11/16/21 20:23 Metformin HCl (Glucophage) 1,000 mg BIDWMEALS PO 11/12/21 17:30 11/18/21 17:14 Pantoprazole Sodium (Protonix) 40 mg DAILYAC PO 11/12/21 07:30 11/18/21 08:20 Rivaroxaban (Xarelto) 20 mg DAILY PO 11/12/21 09:00 11/18/21 08:20 Selenium Sulfide (Selsun) 1 erik WEEKLY TP 11/13/21 09:00 Linagliptin (Tradjenta) 5 mg DAILY PO 11/12/21 09:00 11/18/21 08:20 Nystatin (Nystop) 1 erik BID TP 11/11/21 21:00 11/13/21 17:18 DC 11/12/21 08:31 Trazodone HCl (Desyrel) 50 mg PRN QHS PRN PO insomnia 11/12/21 17:15 Vitamin D (Vitamin D3) 50,000 unit WEEKLY PO 11/12/21 18:00 Nystatin (Mycostatin) 1 erik BID TP 11/13/21 21:00 11/18/21 20:07 Cefdinir (Omnicef) 300 mg BID PO 11/15/21 21:00 11/21/21 22:00 11/18/21 20:05 Lactobacillus Rhamnosus (Culturelle) 1 cap BID PO 11/16/21 21:00 11/18/21 20:04 Duloxetine HCl (Cymbalta) 60 mg DAILY PO 11/17/21 09:00 11/18/21 08:19 Bupropion HCl (Wellbutrin Xl) 150 mg DAILY PO 11/17/21 09:00 11/17/21 16:39 DC 11/17/21 08:37 Bupropion HCl (Wellbutrin Xl) 300 mg DAILY PO 11/20/21 09:00 Bupropion HCl (Wellbutrin) 75 mg 0900,1200 PO 11/18/21 09:00 11/20/21 20:00 11/18/21 17:14 Bupropion HCl (Wellbutrin) 150 mg 0900,1200 PO 11/21/21 09:00 Current Medications Medications (Trade) Dose Ordered Sig/Ro Route PRN Reason Start Time Stop Time Status Last Admin Dose Admin Bupropion HCl (Wellbutrin) 75 mg 0900,1200 PO 11/18/21 09:00 11/20/21 20:00 11/18/21 17:14 I have reviewed the current psychotropics carefully including drug interactions. Risk benefit ratio favors no change other than as noted in my dictated progress note. Diagnosis: Problems: (1) Schizoaffective disorder, bipolar type (2) Impulse control disorder, unspecified (3) Anxiety disorder, unspecified (4) Major depressive disorder with psychotic features PILY MARQUEZ MD Nov 18, 2021 21:31
[2021-11-19] MEDS: LEVOTHYROXINE 100 MCG TABLET PO SCH (06:00)
[2021-11-19] MEDS: diphenhydrAMINE HCL 25 MG CAPSULE PO PRN ×2 (06:02→20:07)
[2021-11-19 06:13] VITALS: BP 127/77
--- NOTE | 2021-11-19 08:06 | PDOC ---
Exam Note: Lewis Note: This note is a late entry for 11/18/2021 covers elements not covered in my initial note. Subjective: The patient was seen on telehealth rounds with Angelic MUELLER on 11/18/2021, discussed and reviewed the chart with Perlita MUELLER. The patient slept 9-3/4 hours previous night. The patient has been more alert and interactive with staff and somewhat of a pleasant change from how she has been for the past several days. We did add Wellbutrin recently and this perhaps has been more activating for her as well. The patient was able to relate to this. Review of Systems: No CV, , pulmonary, eye, ENT system symptoms on review. Ambulation impaired, in wheelchair. Mental Status Exam: The patient is oriented to herself and situation. Speech is little more coherent, pleasant, verbal and interactive. Abstraction fair. Computation impaired. Language function intact. Attention span short, somewhat disorganized in her responses at times with short-term memory deficits. Laboratory Data: Reviewed. Impression: Schizoaffective disorder, bipolar type, depressed with psychotic features. Major depressive disorder, severe with psychotic features. Anxiety disorder unspecified. Impulse control disorder unspecified. Plan: Continue current psychotropics. We will increase the Wellbutrin gradually. Maintain Abilify, Cymbalta, and changed Keppra for her seizures, and trazodone for insomnia. Reviewed drug interactions and risk-benefit ratio. Assessment: Vital Signs/I&O: Vital Signs Date Time Temp Pulse Resp B/P (MAP) Pulse Ox O2 Delivery O2 Flow Rate FiO2 11/19/21 06:13 98.2 69 16 127/77 (94) 95 11/18/21 06:16 Room Air I & O 11/18/21 11/18/21 11/19/21 15:00 23:00 07:00 Intake Total 240 ml 360 ml Balance 240 ml 360 ml Labs: Laboratory Tests Test 11/19/21 07:29 Glucose (Fingerstick) 161 mg/dL (70-99) H Current Medications: Meds: Current Medications Medications (Trade) Dose Ordered Sig/Ro Route PRN Reason Start Time Stop Time Status Last Admin Dose Admin Bupropion HCl (Wellbutrin) 75 mg 0900,1200 PO 11/18/21 09:00 11/20/21 20:00 11/18/21 17:14 I have reviewed the current psychotropics carefully including drug interactions. Risk benefit ratio favors no change other than as noted in my dictated progress note. Diagnosis: Problems: (1) Schizoaffective disorder, bipolar type (2) Impulse control disorder, unspecified (3) Anxiety disorder, unspecified (4) Major depressive disorder with psychotic features PILY MARQUEZ MD Nov 19, 2021 08:06
[2021-11-19] MEDS: LINAGLIPTIN 5 MG TABLET PO SCH (08:46)
[2021-11-19] MEDS: CEFDINIR 300 MG CAPSULE PO SCH ×2 (08:46→20:06)
[2021-11-19] MEDS: PANTOPRAZOLE 40 MG TABLET. PO SCH (08:46)
[2021-11-19] MEDS: ASPIRIN CHEWABLE 81 MG TABLET. PO SCH (08:46)
[2021-11-19] MEDS: metFORMIN 500 MG TABLET PO SCH ×2 (08:46→17:30)
[2021-11-19] MEDS: DULoxetine HCL 60 MG CAPSULE.DR PO SCH (08:46)
[2021-11-19] MEDS: SENNOSIDES/DOCUSATE 8.6/50MG TABLET. PO SCH ×2 (08:46→20:06)
[2021-11-19] MEDS: LACTOBACILLUS RHAMNOSUS GG 1 CAPSULE. PO SCH ×2 (08:46→20:06)
[2021-11-19] MEDS: buPROPion 75 MG TABLET PO SCH ×2 (08:47→12:56)
[2021-11-19] MEDS: RIVAROXABAN 10 MG TABLET. PO SCH (08:47)
[2021-11-19] MEDS: NYSTATIN 100,000 UNIT/GM TOPICAL CREAM 15GM TUBE. TP SCH ×2 (08:47→20:07)
[2021-11-19] MEDS: CETIRIZINE HCL 10 MG TABLET PO SCH (08:47)
[2021-11-19] MEDS: levETIRAcetam 500 MG TABLET PO SCH ×2 (08:47→20:06)
[2021-11-19] MEDS: CHOLECALCIFEROL (VITAMIN D3) 50,000 UNIT CAPSULE PO SCH (08:47)
[2021-11-19 16:30] VITALS: BP 106/64
[2021-11-19] MEDS: ARIPiprazole 10 MG TABLET PO SCH (20:06)
--- NOTE | 2021-11-19 22:12 | PDOC ---
Exam Note: Lewis Note: Please also refer to the separate dictated note~for this date of service dictated separately.~Patient seen individually. Discussed the patient with Nursing staff reviewed the chart.~Reviewed interim history and current functioning. Reviewed vital signs,~Labs/ Radiology~and current medications noted below. Continue current treatment with the changes noted in the dictated addendum note Assessment: Vital Signs/I&O: Vital Signs Date Time Temp Pulse Resp B/P (MAP) Pulse Ox O2 Delivery O2 Flow Rate FiO2 11/19/21 16:30 97.6 73 16 106/64 (78) 95 Room Air I & O 11/18/21 11/18/21 11/19/21 15:00 23:00 07:00 Intake Total 240 ml 360 ml Balance 240 ml 360 ml Labs: Laboratory Tests Test 11/19/21 07:29 Glucose (Fingerstick) 161 mg/dL (70-99) H Current Medications: Meds: Laboratory Tests Test 11/19/21 07:29 Glucose (Fingerstick) 161 mg/dL Current Medications Medications (Trade) Dose Ordered Sig/Ro Route PRN Reason Start Time Stop Time Status Last Admin Dose Admin Acetaminophen (Tylenol) 650 mg PRN Q6HRS PRN PO MILD PAIN / TEMP > 100.3'F 11/11/21 15:15 Multi-Ingredient Ointment (Analgesic [place]) 1 erik PRN QID PRN TP MUSCLE PAIN 11/11/21 15:15 Al Hydroxide/Mg Hydroxide (Mylanta Plus Xs) 15 ml PRN AFTMEALHC PRN PO DYSPEPSIA 11/11/21 15:15 Magnesium Hydroxide (Milk Of Magnesia) 2,400 mg PRN QHS PRN PO CONSTIPATION 11/11/21 15:15 Aripiprazole (Abilify) 10 mg HS PO 11/11/21 21:00 11/19/21 21:00 DC 11/19/21 20:06 Aspirin (Aspirin Chewable) 81 mg DAILY PO 11/12/21 09:00 11/19/21 08:46 Cetirizine HCl (ZyrTEC) 10 mg DAILY PO 11/12/21 09:00 11/19/21 08:47 Duloxetine HCl (Cymbalta) 60 mg BID PO 11/11/21 21:00 11/16/21 18:51 DC 11/16/21 08:01 Levetiracetam (Keppra) 500 mg BID PO 11/11/21 21:00 11/19/21 20:06 Levothyroxine Sodium (Synthroid) 100 mcg DAILY06 PO 11/12/21 06:00 11/19/21 06:00 Senna/Docusate Sodium (Senna Plus) 1 tab BID PO 11/11/21 21:00 11/19/21 20:06 Calcium Carbonate/ Glycine (Tums) 500 mg PRN Q4HRS PRN PO INDIGESTION 11/11/21 15:45 Diphenhydramine HCl (Benadryl) 25 mg PRN Q6HRS PRN PO ALLERGIES 11/11/21 15:45 11/19/21 20:07 Metformin HCl (Glucophage) 1,000 mg BIDWMEALS PO 11/12/21 17:30 11/19/21 17:30 Pantoprazole Sodium (Protonix) 40 mg DAILYAC PO 11/12/21 07:30 11/19/21 08:46 Rivaroxaban (Xarelto) 20 mg DAILY PO 11/12/21 09:00 11/19/21 08:47 Selenium Sulfide (Selsun) 1 erik WEEKLY TP 11/13/21 09:00 Linagliptin (Tradjenta) 5 mg DAILY PO 11/12/21 09:00 11/19/21 08:46 Nystatin (Nystop) 1 erik BID TP 11/11/21 21:00 11/13/21 17:18 DC 11/12/21 08:31 Trazodone HCl (Desyrel) 50 mg PRN QHS PRN PO insomnia 11/12/21 17:15 Vitamin D (Vitamin D3) 50,000 unit WEEKLY PO 11/12/21 18:00 11/19/21 08:47 Nystatin (Mycostatin) 1 erik BID TP 11/13/21 21:00 11/19/21 20:07 Cefdinir (Omnicef) 300 mg BID PO 11/15/21 21:00 11/21/21 22:00 11/19/21 20:06 Lactobacillus Rhamnosus (Culturelle) 1 cap BID PO 11/16/21 21:00 11/19/21 20:06 Duloxetine HCl (Cymbalta) 60 mg DAILY PO 11/17/21 09:00 11/19/21 08:46 Bupropion HCl (Wellbutrin Xl) 150 mg DAILY PO 11/17/21 09:00 11/17/21 16:39 DC 11/17/21 08:37 Bupropion HCl (Wellbutrin Xl) 300 mg DAILY PO 11/20/21 09:00 Bupropion HCl (Wellbutrin) 75 mg 0900,1200 PO 11/18/21 09:00 11/20/21 20:00 11/19/21 12:56 Bupropion HCl (Wellbutrin) 150 mg 0900,1200 PO 11/21/21 09:00 Aripiprazole (Abilify) 10 mg DAILYWSUP PO 11/20/21 17:00 I have reviewed the current psychotropics carefully including drug interactions. Risk benefit ratio favors no change other than as noted in my dictated progress note. Diagnosis: Problems: (1) Schizoaffective disorder, bipolar type (2) Impulse control disorder, unspecified (3) Anxiety disorder, unspecified (4) Major depressive disorder with psychotic features PILY MARQUEZ MD Nov 19, 2021 22:12
[2021-11-20] MEDS: LEVOTHYROXINE 100 MCG TABLET PO SCH (05:36)
[2021-11-20 06:17] VITALS: BP 123/77
[2021-11-20] MEDS: PANTOPRAZOLE 40 MG TABLET. PO SCH (08:44)
[2021-11-20] MEDS: NYSTATIN 100,000 UNIT/GM TOPICAL CREAM 15GM TUBE. TP SCH ×2 (08:44→21:00)
[2021-11-20] MEDS: LINAGLIPTIN 5 MG TABLET PO SCH (08:44)
[2021-11-20] MEDS: LACTOBACILLUS RHAMNOSUS GG 1 CAPSULE. PO SCH ×2 (08:44→20:03)
[2021-11-20] MEDS: buPROPion 75 MG TABLET PO SCH ×2 (08:44→12:05)
[2021-11-20] MEDS: ASPIRIN CHEWABLE 81 MG TABLET. PO SCH (08:44)
[2021-11-20] MEDS: metFORMIN 500 MG TABLET PO SCH ×2 (08:45→17:25)
[2021-11-20] MEDS: DULoxetine HCL 60 MG CAPSULE.DR PO SCH (08:45)
[2021-11-20] MEDS: CETIRIZINE HCL 10 MG TABLET PO SCH (08:45)
[2021-11-20] MEDS: CEFDINIR 300 MG CAPSULE PO SCH ×2 (08:45→20:03)
[2021-11-20] MEDS: RIVAROXABAN 10 MG TABLET. PO SCH (08:45)
[2021-11-20] MEDS: levETIRAcetam 500 MG TABLET PO SCH ×2 (08:45→20:03)
[2021-11-20] MEDS: SENNOSIDES/DOCUSATE 8.6/50MG TABLET. PO SCH ×2 (08:45→20:03)
[2021-11-20] MEDS: SELENIUM SULFIDE 1% TOPICAL SHAMPOO 207ML BOTTLE. TP SCH (08:46)
[2021-11-20] MEDS ORDERED: buPROPion XL 300 MG TAB.ER.24H. PO SCH (09:00)
[2021-11-20 16:04] VITALS: BP 111/73
[2021-11-20] MEDS: ARIPiprazole 10 MG TABLET PO SCH (17:25)
--- NOTE | 2021-11-20 21:54 | PDOC ---
Exam Note: Lewis Note: Please also refer to the separate dictated note~for this date of service dictated separately.~Patient seen individually. Discussed the patient with Nursing staff reviewed the chart.~Reviewed interim history and current functioning. Reviewed vital signs,~Labs/ Radiology~and current medications noted below. Continue current treatment with the changes noted in the dictated addendum note Assessment: Vital Signs/I&O: Vital Signs Date Time Temp Pulse Resp B/P (MAP) Pulse Ox O2 Delivery O2 Flow Rate FiO2 11/20/21 16:04 98.0 74 18 111/73 (86) 99 Room Air I & O 11/19/21 11/19/21 11/20/21 15:00 23:00 07:00 Intake Total 300 ml 600 ml Balance 300 ml 600 ml Labs: Laboratory Tests Test 11/20/21 07:57 Glucose (Fingerstick) 113 mg/dL (70-99) H Current Medications: Meds: Laboratory Tests Test 11/20/21 07:57 Glucose (Fingerstick) 113 mg/dL Current Medications Medications (Trade) Dose Ordered Sig/Ro Route PRN Reason Start Time Stop Time Status Last Admin Dose Admin Acetaminophen (Tylenol) 650 mg PRN Q6HRS PRN PO MILD PAIN / TEMP > 100.3'F 11/11/21 15:15 Multi-Ingredient Ointment (Analgesic [place]) 1 erik PRN QID PRN TP MUSCLE PAIN 11/11/21 15:15 Al Hydroxide/Mg Hydroxide (Mylanta Plus Xs) 15 ml PRN AFTMEALHC PRN PO DYSPEPSIA 11/11/21 15:15 Magnesium Hydroxide (Milk Of Magnesia) 2,400 mg PRN QHS PRN PO CONSTIPATION 11/11/21 15:15 Aripiprazole (Abilify) 10 mg HS PO 11/11/21 21:00 11/19/21 21:00 DC 11/19/21 20:06 Aspirin (Aspirin Chewable) 81 mg DAILY PO 11/12/21 09:00 11/20/21 08:44 Cetirizine HCl (ZyrTEC) 10 mg DAILY PO 11/12/21 09:00 11/20/21 08:45 Duloxetine HCl (Cymbalta) 60 mg BID PO 11/11/21 21:00 11/16/21 18:51 DC 11/16/21 08:01 Levetiracetam (Keppra) 500 mg BID PO 11/11/21 21:00 11/20/21 20:03 Levothyroxine Sodium (Synthroid) 100 mcg DAILY06 PO 11/12/21 06:00 11/20/21 05:36 Senna/Docusate Sodium (Senna Plus) 1 tab BID PO 11/11/21 21:00 11/20/21 20:03 Calcium Carbonate/ Glycine (Tums) 500 mg PRN Q4HRS PRN PO INDIGESTION 11/11/21 15:45 Diphenhydramine HCl (Benadryl) 25 mg PRN Q6HRS PRN PO ALLERGIES 11/11/21 15:45 11/19/21 20:07 Metformin HCl (Glucophage) 1,000 mg BIDWMEALS PO 11/12/21 17:30 11/20/21 17:25 Pantoprazole Sodium (Protonix) 40 mg DAILYAC PO 11/12/21 07:30 11/20/21 08:44 Rivaroxaban (Xarelto) 20 mg DAILY PO 11/12/21 09:00 11/20/21 08:45 Selenium Sulfide (Selsun) 1 erik WEEKLY TP 11/13/21 09:00 11/20/21 08:46 Linagliptin (Tradjenta) 5 mg DAILY PO 11/12/21 09:00 11/20/21 08:44 Nystatin (Nystop) 1 erik BID TP 11/11/21 21:00 11/13/21 17:18 DC 11/12/21 08:31 Trazodone HCl (Desyrel) 50 mg PRN QHS PRN PO insomnia 11/12/21 17:15 Vitamin D (Vitamin D3) 50,000 unit WEEKLY PO 11/12/21 18:00 11/19/21 08:47 Nystatin (Mycostatin) 1 erik BID TP 11/13/21 21:00 11/20/21 21:00 Cefdinir (Omnicef) 300 mg BID PO 11/15/21 21:00 11/21/21 22:00 11/20/21 20:03 Lactobacillus Rhamnosus (Culturelle) 1 cap BID PO 11/16/21 21:00 11/20/21 20:03 Duloxetine HCl (Cymbalta) 60 mg DAILY PO 11/17/21 09:00 11/20/21 08:45 Bupropion HCl (Wellbutrin Xl) 150 mg DAILY PO 11/17/21 09:00 11/17/21 16:39 DC 11/17/21 08:37 Bupropion HCl (Wellbutrin Xl) 300 mg DAILY PO 11/20/21 09:00 11/20/21 18:51 DC Bupropion HCl (Wellbutrin) 75 mg 0900,1200 PO 11/18/21 09:00 11/20/21 20:00 DC 11/20/21 12:05 Bupropion HCl (Wellbutrin) 150 mg 0900,1200 PO 11/21/21 09:00 Aripiprazole (Abilify) 10 mg DAILYWSUP PO 11/20/21 17:00 11/20/21 17:25 Current Medications Medications (Trade) Dose Ordered Sig/Ro Route PRN Reason Start Time Stop Time Status Last Admin Dose Admin Aripiprazole (Abilify) 10 mg DAILYWSUP PO 11/20/21 17:00 11/20/21 17:25 I have reviewed the current psychotropics carefully including drug interactions. Risk benefit ratio favors no change other than as noted in my dictated progress note. Diagnosis: Problems: (1) Schizoaffective disorder, bipolar type (2) Impulse control disorder, unspecified (3) Anxiety disorder, unspecified (4) Major depressive disorder with psychotic features PILY MARQUEZ MD Nov 20, 2021 21:54
[2021-11-21] MEDS: LEVOTHYROXINE 100 MCG TABLET PO SCH (05:45)
[2021-11-21 06:20] VITALS: BP 110/67
--- NOTE | 2021-11-21 08:01 | PDOC ---
Exam Note: Lewis Note: This note is a late entry for 11/19/2021 covers elements not covered in my initial note. Subjective: The patient was reviewed at treatment team meeting in the morning on 11/19/2021 with Lu Cervantes, Sunni Sahu, and Susana More (psychologist social), Shirley, activity therapy, Angelic and Perlita MUELLER, discussed and reviewed the chart. Discussed disposition plans, diagnoses, prognosis at treatment team meeting. The patient slept 6-1/2 hours previous night. Appetite is 50%. She has been more alert, interactive, seems more oriented. I met with her in her room. Review of Systems: No CV, , pulmonary, eye, ENT system symptoms on review. Ambulation impaired, in wheelchair. Mental Status Exam: The patient is alert and oriented to situation. Speech is coherent, pleasant, smiling. Abstraction fair. Computation impaired. Language function intact. Attention span short. Mood and affect remains less withdrawn. No suicidal or homicidal ideation. Laboratory Data: Reviewed. Impression: Schizoaffective disorder, bipolar type, depressed with psychotic features. Major depressive disorder, severe with psychotic features. Anxiety disorder unspecified. Impulse control disorder unspecified. Plan: Continue current psychotropics. Reviewed drug interactions and risk- benefit ratio favors no change. Assessment: Vital Signs/I&O: Vital Signs Date Time Temp Pulse Resp B/P (MAP) Pulse Ox O2 Delivery O2 Flow Rate FiO2 11/21/21 06:20 97.0 68 16 110/67 (81) 95 11/20/21 16:04 Room Air I & O 11/20/21 11/20/21 11/21/21 15:00 23:00 07:00 Intake Total 240 ml 600 ml Balance 240 ml 600 ml Labs: Laboratory Tests Test 11/21/21 07:30 Glucose (Fingerstick) 108 mg/dL (70-99) H Current Medications: Meds: Current Medications Medications (Trade) Dose Ordered Sig/Ro Route PRN Reason Start Time Stop Time Status Last Admin Dose Admin Aripiprazole (Abilify) 10 mg DAILYWSUP PO 11/20/21 17:00 11/20/21 17:25 I have reviewed the current psychotropics carefully including drug interactions. Risk benefit ratio favors no change other than as noted in my dictated progress note. Diagnosis: Problems: (1) Schizoaffective disorder, bipolar type (2) Impulse control disorder, unspecified (3) Anxiety disorder, unspecified (4) Major depressive disorder with psychotic features PILY MARQUEZ MD Nov 21, 2021 08:01
--- NOTE | 2021-11-21 08:10 | PDOC ---
Exam Note: Lewis Note: This note is a late entry for 11/20/2021 covers elements not covered in my initial note. Subjective: The patient was seen individually on 11/20/2021, discussed and reviewed the chart with Perlita MUELLER. The patient slept 7-1/2 hours previous night. The patient has been less verbal today, less interactive, playing possum. She did receive Benadryl last night for insomnia but was quite sedated from this part of the day till the afternoon. Oral intake remains poor. She has been given Ensure and Gatorade since urinary output was low in the morning. Review of Systems: Complains of tiredness. No CV, , pulmonary, eye, ENT system symptoms on review. Mental Status Exam: The patient is oriented to herself and situation. Speech has moderate latency. Often response is monosyllabic. Abstraction fair. Computation impaired. Language function intact. Attention span short. Mood and affect withdrawn. Laboratory Data: Reviewed. Impression: Schizoaffective disorder, bipolar type, depressed. Mild cognitive impairment. Anxiety disorder unspecified. Impulse control disorder unspecified. Plan: Continue current psychotropics. We are increasing Wellbutrin from 75 mg twice a day to 150 mg twice a day. Maintain Abilify, Cymbalta, Keppra, trazodone unchanged for now. Adjust further as clinically indicated. Assessment: Vital Signs/I&O: Vital Signs Date Time Temp Pulse Resp B/P (MAP) Pulse Ox O2 Delivery O2 Flow Rate FiO2 11/21/21 06:20 97.0 68 16 110/67 (81) 95 11/20/21 16:04 Room Air I & O 11/20/21 11/20/21 11/21/21 15:00 23:00 07:00 Intake Total 240 ml 600 ml Balance 240 ml 600 ml Labs: Laboratory Tests Test 11/21/21 07:30 Glucose (Fingerstick) 108 mg/dL (70-99) H Current Medications: Meds: Current Medications Medications (Trade) Dose Ordered Sig/Ro Route PRN Reason Start Time Stop Time Status Last Admin Dose Admin Aripiprazole (Abilify) 10 mg DAILYWSUP PO 11/20/21 17:00 11/20/21 17:25 I have reviewed the current psychotropics carefully including drug interactions. Risk benefit ratio favors no change other than as noted in my dictated progress note. Diagnosis: Problems: (1) Schizoaffective disorder, bipolar type (2) Impulse control disorder, unspecified (3) Anxiety disorder, unspecified (4) Major depressive disorder with psychotic features PILY MARQUEZ MD Nov 21, 2021 08:10
[2021-11-21] MEDS: metFORMIN 500 MG TABLET PO SCH ×2 (08:11→16:58)
[2021-11-21] MEDS: buPROPion 75 MG TABLET PO SCH ×2 (08:11→12:09)
[2021-11-21] MEDS: PANTOPRAZOLE 40 MG TABLET. PO SCH (08:11)
[2021-11-21] MEDS: levETIRAcetam 500 MG TABLET PO SCH ×2 (08:12→20:05)
[2021-11-21] MEDS: SENNOSIDES/DOCUSATE 8.6/50MG TABLET. PO SCH ×2 (08:12→20:05)
[2021-11-21] MEDS: RIVAROXABAN 10 MG TABLET. PO SCH (08:12)
[2021-11-21] MEDS: CETIRIZINE HCL 10 MG TABLET PO SCH (08:12)
[2021-11-21] MEDS: ASPIRIN CHEWABLE 81 MG TABLET. PO SCH (08:12)
[2021-11-21] MEDS: DULoxetine HCL 60 MG CAPSULE.DR PO SCH (08:12)
[2021-11-21] MEDS: LINAGLIPTIN 5 MG TABLET PO SCH (08:12)
[2021-11-21] MEDS: CEFDINIR 300 MG CAPSULE PO SCH ×2 (08:12→20:05)
[2021-11-21] MEDS: LACTOBACILLUS RHAMNOSUS GG 1 CAPSULE. PO SCH ×2 (08:12→20:06)
[2021-11-21] MEDS: NYSTATIN 100,000 UNIT/GM TOPICAL CREAM 15GM TUBE. TP SCH ×2 (09:00→20:06)
[2021-11-21 15:42] VITALS: BP 114/69
[2021-11-21] MEDS: ARIPiprazole 10 MG TABLET PO SCH (16:58)
[2021-11-21] MEDS: diphenhydrAMINE HCL 25 MG CAPSULE PO PRN (20:08)
--- NOTE | 2021-11-21 21:45 | PDOC ---
Exam Note: Lewis Note: Please also refer to the separate dictated note~for this date of service dictated separately.~Patient seen individually. Discussed the patient with Nursing staff reviewed the chart.~Reviewed interim history and current functioning. Reviewed vital signs,~Labs/ Radiology~and current medications noted below. Continue current treatment with the changes noted in the dictated addendum note Assessment: Vital Signs/I&O: Vital Signs Date Time Temp Pulse Resp B/P (MAP) Pulse Ox O2 Delivery O2 Flow Rate FiO2 11/21/21 15:42 97.7 79 17 114/69 (84) 92 11/20/21 16:04 Room Air I & O 11/20/21 11/20/21 11/21/21 15:00 23:00 07:00 Intake Total 240 ml 600 ml Balance 240 ml 600 ml Labs: Laboratory Tests Test 11/21/21 07:30 Glucose (Fingerstick) 108 mg/dL (70-99) H Current Medications: Meds: Laboratory Tests Test 11/21/21 07:30 Glucose (Fingerstick) 108 mg/dL Current Medications Medications (Trade) Dose Ordered Sig/Ro Route PRN Reason Start Time Stop Time Status Last Admin Dose Admin Acetaminophen (Tylenol) 650 mg PRN Q6HRS PRN PO MILD PAIN / TEMP > 100.3'F 11/11/21 15:15 Multi-Ingredient Ointment (Analgesic [place]) 1 erik PRN QID PRN TP MUSCLE PAIN 11/11/21 15:15 Al Hydroxide/Mg Hydroxide (Mylanta Plus Xs) 15 ml PRN AFTMEALHC PRN PO DYSPEPSIA 11/11/21 15:15 Magnesium Hydroxide (Milk Of Magnesia) 2,400 mg PRN QHS PRN PO CONSTIPATION 11/11/21 15:15 Aripiprazole (Abilify) 10 mg HS PO 11/11/21 21:00 11/19/21 21:00 DC 11/19/21 20:06 Aspirin (Aspirin Chewable) 81 mg DAILY PO 11/12/21 09:00 11/21/21 08:12 Cetirizine HCl (ZyrTEC) 10 mg DAILY PO 11/12/21 09:00 11/21/21 08:12 Duloxetine HCl (Cymbalta) 60 mg BID PO 11/11/21 21:00 11/16/21 18:51 DC 11/16/21 08:01 Levetiracetam (Keppra) 500 mg BID PO 11/11/21 21:00 11/21/21 20:05 Levothyroxine Sodium (Synthroid) 100 mcg DAILY06 PO 11/12/21 06:00 11/21/21 05:45 Senna/Docusate Sodium (Senna Plus) 1 tab BID PO 11/11/21 21:00 11/21/21 20:05 Calcium Carbonate/ Glycine (Tums) 500 mg PRN Q4HRS PRN PO INDIGESTION 11/11/21 15:45 Diphenhydramine HCl (Benadryl) 25 mg PRN Q6HRS PRN PO ALLERGIES 11/11/21 15:45 11/21/21 20:08 Metformin HCl (Glucophage) 1,000 mg BIDWMEALS PO 11/12/21 17:30 11/21/21 16:58 Pantoprazole Sodium (Protonix) 40 mg DAILYAC PO 11/12/21 07:30 11/21/21 08:11 Rivaroxaban (Xarelto) 20 mg DAILY PO 11/12/21 09:00 11/21/21 08:12 Selenium Sulfide (Selsun) 1 erik WEEKLY TP 11/13/21 09:00 11/20/21 08:46 Linagliptin (Tradjenta) 5 mg DAILY PO 11/12/21 09:00 11/21/21 08:12 Nystatin (Nystop) 1 erik BID TP 11/11/21 21:00 11/13/21 17:18 DC 11/12/21 08:31 Trazodone HCl (Desyrel) 50 mg PRN QHS PRN PO insomnia 11/12/21 17:15 Vitamin D (Vitamin D3) 50,000 unit WEEKLY PO 11/12/21 18:00 11/19/21 08:47 Nystatin (Mycostatin) 1 erik BID TP 11/13/21 21:00 11/21/21 20:06 Cefdinir (Omnicef) 300 mg BID PO 11/15/21 21:00 11/21/21 22:00 11/21/21 20:05 Lactobacillus Rhamnosus (Culturelle) 1 cap BID PO 11/16/21 21:00 11/21/21 20:06 Duloxetine HCl (Cymbalta) 60 mg DAILY PO 11/17/21 09:00 11/21/21 08:12 Bupropion HCl (Wellbutrin Xl) 150 mg DAILY PO 11/17/21 09:00 11/17/21 16:39 DC 11/17/21 08:37 Bupropion HCl (Wellbutrin Xl) 300 mg DAILY PO 11/20/21 09:00 11/20/21 18:51 DC Bupropion HCl (Wellbutrin) 75 mg 0900,1200 PO 11/18/21 09:00 11/20/21 20:00 DC 11/20/21 12:05 Bupropion HCl (Wellbutrin) 150 mg 0900,1200 PO 11/21/21 09:00 11/21/21 12:09 Aripiprazole (Abilify) 10 mg DAILYWSUP PO 11/20/21 17:00 11/21/21 16:58 Current Medications Medications (Trade) Dose Ordered Sig/Ro Route PRN Reason Start Time Stop Time Status Last Admin Dose Admin Bupropion HCl (Wellbutrin) 150 mg 0900,1200 PO 11/21/21 09:00 11/21/21 12:09 I have reviewed the current psychotropics carefully including drug interactions. Risk benefit ratio favors no change other than as noted in my dictated progress note. Diagnosis: Problems: (1) Schizoaffective disorder, bipolar type (2) Impulse control disorder, unspecified (3) Anxiety disorder, unspecified (4) Major depressive disorder with psychotic features PILY MARQUEZ MD Nov 21, 2021 21:45
[2021-11-22 05:46] VITALS: BP 122/75
[2021-11-22] MEDS: LEVOTHYROXINE 100 MCG TABLET PO SCH (06:00)
[2021-11-22] MEDS: PANTOPRAZOLE 40 MG TABLET. PO SCH (08:00)
[2021-11-22] MEDS: LACTOBACILLUS RHAMNOSUS GG 1 CAPSULE. PO SCH ×2 (08:00→20:16)
[2021-11-22] MEDS: CETIRIZINE HCL 10 MG TABLET PO SCH (08:00)
[2021-11-22] MEDS: RIVAROXABAN 10 MG TABLET. PO SCH (08:00)
[2021-11-22] MEDS: SENNOSIDES/DOCUSATE 8.6/50MG TABLET. PO SCH ×2 (08:00→20:16)
[2021-11-22] MEDS: levETIRAcetam 500 MG TABLET PO SCH ×2 (08:00→20:16)
[2021-11-22] MEDS: metFORMIN 500 MG TABLET PO SCH ×2 (08:01→17:20)
[2021-11-22] MEDS: buPROPion 75 MG TABLET PO SCH ×2 (08:01→12:02)
[2021-11-22] MEDS: ASPIRIN CHEWABLE 81 MG TABLET. PO SCH (08:01)
[2021-11-22] MEDS: DULoxetine HCL 60 MG CAPSULE.DR PO SCH (08:01)
[2021-11-22] MEDS: LINAGLIPTIN 5 MG TABLET PO SCH (08:01)
[2021-11-22] MEDS: NYSTATIN 100,000 UNIT/GM TOPICAL CREAM 15GM TUBE. TP SCH ×2 (09:00→20:17)
[2021-11-22 16:34] VITALS: BP 119/68
[2021-11-22] MEDS: ARIPiprazole 10 MG TABLET PO SCH (17:20)
--- NOTE | 2021-11-22 21:46 | PDOC ---
Exam Note: Lewis Note: Please also refer to the separate dictated note~for this date of service dictated separately.~Patient seen individually. Discussed the patient with Nursing staff reviewed the chart.~Reviewed interim history and current functioning. Reviewed vital signs,~Labs/ Radiology~and current medications noted below. Continue current treatment with the changes noted in the dictated addendum note Assessment: Vital Signs/I&O: Vital Signs Date Time Temp Pulse Resp B/P (MAP) Pulse Ox O2 Delivery O2 Flow Rate FiO2 11/22/21 16:34 97.4 79 18 119/68 (85) 98 Room Air I & O 11/21/21 11/21/21 11/22/21 15:00 23:00 07:00 Intake Total 967 ml 0 ml Balance 967 ml 0 ml Current Medications: Meds: Current Medications Medications (Trade) Dose Ordered Sig/Ro Route PRN Reason Start Time Stop Time Status Last Admin Dose Admin Acetaminophen (Tylenol) 650 mg PRN Q6HRS PRN PO MILD PAIN / TEMP > 100.3'F 11/11/21 15:15 Multi-Ingredient Ointment (Analgesic [place]) 1 erik PRN QID PRN TP MUSCLE PAIN 11/11/21 15:15 Al Hydroxide/Mg Hydroxide (Mylanta Plus Xs) 15 ml PRN AFTMEALHC PRN PO DYSPEPSIA 11/11/21 15:15 Magnesium Hydroxide (Milk Of Magnesia) 2,400 mg PRN QHS PRN PO CONSTIPATION 11/11/21 15:15 Aripiprazole (Abilify) 10 mg HS PO 11/11/21 21:00 11/19/21 21:00 DC 11/19/21 20:06 Aspirin (Aspirin Chewable) 81 mg DAILY PO 11/12/21 09:00 11/22/21 08:01 Cetirizine HCl (ZyrTEC) 10 mg DAILY PO 11/12/21 09:00 11/22/21 08:00 Duloxetine HCl (Cymbalta) 60 mg BID PO 11/11/21 21:00 11/16/21 18:51 DC 11/16/21 08:01 Levetiracetam (Keppra) 500 mg BID PO 11/11/21 21:00 11/22/21 20:16 Levothyroxine Sodium (Synthroid) 100 mcg DAILY06 PO 11/12/21 06:00 11/22/21 06:00 Senna/Docusate Sodium (Senna Plus) 1 tab BID PO 11/11/21 21:00 11/22/21 20:16 Calcium Carbonate/ Glycine (Tums) 500 mg PRN Q4HRS PRN PO INDIGESTION 11/11/21 15:45 Diphenhydramine HCl (Benadryl) 25 mg PRN Q6HRS PRN PO ALLERGIES 11/11/21 15:45 11/21/21 20:08 Metformin HCl (Glucophage) 1,000 mg BIDWMEALS PO 11/12/21 17:30 11/22/21 17:20 Pantoprazole Sodium (Protonix) 40 mg DAILYAC PO 11/12/21 07:30 11/22/21 08:00 Rivaroxaban (Xarelto) 20 mg DAILY PO 11/12/21 09:00 11/22/21 08:00 Selenium Sulfide (Selsun) 1 erik WEEKLY TP 11/13/21 09:00 11/20/21 08:46 Linagliptin (Tradjenta) 5 mg DAILY PO 11/12/21 09:00 11/22/21 08:01 Nystatin (Nystop) 1 erik BID TP 11/11/21 21:00 11/13/21 17:18 DC 11/12/21 08:31 Trazodone HCl (Desyrel) 50 mg PRN QHS PRN PO insomnia 11/12/21 17:15 Vitamin D (Vitamin D3) 50,000 unit WEEKLY PO 11/12/21 18:00 11/19/21 08:47 Nystatin (Mycostatin) 1 erik BID TP 11/13/21 21:00 11/22/21 20:17 Cefdinir (Omnicef) 300 mg BID PO 11/15/21 21:00 11/21/21 22:00 DC 11/21/21 20:05 Lactobacillus Rhamnosus (Culturelle) 1 cap BID PO 11/16/21 21:00 11/22/21 20:16 Duloxetine HCl (Cymbalta) 60 mg DAILY PO 11/17/21 09:00 11/22/21 08:01 Bupropion HCl (Wellbutrin Xl) 150 mg DAILY PO 11/17/21 09:00 11/17/21 16:39 DC 11/17/21 08:37 Bupropion HCl (Wellbutrin Xl) 300 mg DAILY PO 11/20/21 09:00 11/20/21 18:51 DC Bupropion HCl (Wellbutrin) 75 mg 0900,1200 PO 11/18/21 09:00 11/20/21 20:00 DC 11/20/21 12:05 Bupropion HCl (Wellbutrin) 150 mg 0900,1200 PO 11/21/21 09:00 11/22/21 12:02 Aripiprazole (Abilify) 10 mg DAILYWSUP PO 11/20/21 17:00 11/22/21 17:20 I have reviewed the current psychotropics carefully including drug interactions. Risk benefit ratio favors no change other than as noted in my dictated progress note. Diagnosis: Problems: (1) Schizoaffective disorder, bipolar type (2) Impulse control disorder, unspecified (3) Anxiety disorder, unspecified (4) Major depressive disorder with psychotic features PILY MARQUEZ MD Nov 22, 2021 21:46
[2021-11-23 05:41] VITALS: BP 95/58
[2021-11-23] MEDS: LEVOTHYROXINE 100 MCG TABLET PO SCH (05:41)
--- NOTE | 2021-11-23 07:10 | PDOC ---
Exam Note: Lewis Note: This note is a late entry for 11/21/2021 covers elements not covered in my initial note. Subjective: The patient was seen individually on 11/21/2021, discussed and reviewed the chart with Cecil MUELLER. The patient slept 9-1/2 hours previous night. The patient does take her medications whole. She has been more interactive, talking to nursing staff, somewhat withdrawn to her bed for meals but did eat her supper. Review of Systems: No CV, , pulmonary, eye, ENT system symptoms on review. Mental Status Exam: The patient is oriented to herself and situation. Speech is coherent, has some latency. Abstraction fair. Computation impaired. Language function intact. Attention span short. Mood and affect still withdrawn. Laboratory Data: Reviewed. Impression: Schizoaffective disorder, bipolar type, depressed, in partial remission. Mild cognitive impairment. Anxiety disorder unspecified. Impulse control disorder unspecified. Plan: Continue current psychotropics mentioned in my initial note. We will adjust further as clinically indicated. She is currently on Abilify, Cymbalta, Keppra for seizures, trazodone and Wellbutrin, the latter is being increased to 300 mg a day, that is 150 mg morning and noon. Assessment: Vital Signs/I&O: Vital Signs Date Time Temp Pulse Resp B/P (MAP) Pulse Ox O2 Delivery O2 Flow Rate FiO2 11/23/21 05:41 97.9 76 14 95/58 (70) 94 Room Air I & O 11/22/21 11/22/21 11/23/21 15:00 23:00 07:00 Intake Total 440 ml 720 ml Balance 440 ml 720 ml Current Medications: I have reviewed the current psychotropics carefully including drug interactions. Risk benefit ratio favors no change other than as noted in my dictated progress note. Diagnosis: Problems: (1) Schizoaffective disorder, bipolar type (2) Impulse control disorder, unspecified (3) Anxiety disorder, unspecified (4) Major depressive disorder with psychotic features PILY MARQUEZ MD Nov 23, 2021 07:10
--- NOTE | 2021-11-23 07:43 | PDOC ---
Exam Note: Lewis Note: This note is a late entry for 11/22/2021 covers elements not covered in my initial note. Subjective: The patient was seen individually on 11/22/2021, discussed and reviewed the chart with Kelby MUELLER. The patient slept 8 hours previous night. She is doing better today. Previous night she was playing possum per nursing staff but not today she has been more interactive, appropriate. Review of Systems: I met with her in her room. No CV, , pulmonary, eye, ENT system symptoms on review. Mental Status Exam: The patient is oriented to herself and situation. Speech is coherent. Abstraction fair. Computation impaired. Language function intact. Attention span short. Mood and affect improved. Laboratory Data: Reviewed. Impression: Schizoaffective disorder, bipolar type, depressed, in partial remission. Mild cognitive impairment. Anxiety disorder unspecified. Impulse control disorder unspecified. Plan: Continue current psychotropics. Assessment: Vital Signs/I&O: Vital Signs Date Time Temp Pulse Resp B/P (MAP) Pulse Ox O2 Delivery O2 Flow Rate FiO2 11/23/21 05:41 97.9 76 14 95/58 (70) 94 Room Air I & O 11/22/21 11/22/21 11/23/21 15:00 23:00 07:00 Intake Total 440 ml 720 ml Balance 440 ml 720 ml Labs: Laboratory Tests Test 11/23/21 07:30 Glucose (Fingerstick) 151 mg/dL (70-99) H Current Medications: I have reviewed the current psychotropics carefully including drug interactions. Risk benefit ratio favors no change other than as noted in my dictated progress note. Diagnosis: Problems: (1) Schizoaffective disorder, bipolar type (2) Impulse control disorder, unspecified (3) Anxiety disorder, unspecified (4) Major depressive disorder with psychotic features PILY MARQUEZ MD Nov 23, 2021 07:43
[2021-11-23] MEDS: metFORMIN 500 MG TABLET PO SCH ×2 (07:59→16:04)
[2021-11-23] MEDS: PANTOPRAZOLE 40 MG TABLET. PO SCH (07:59)
[2021-11-23] MEDS: buPROPion 75 MG TABLET PO SCH ×2 (07:59→12:00)
[2021-11-23] MEDS: LACTOBACILLUS RHAMNOSUS GG 1 CAPSULE. PO SCH ×2 (08:00→20:20)
[2021-11-23] MEDS: DULoxetine HCL 60 MG CAPSULE.DR PO SCH (08:00)
[2021-11-23] MEDS: RIVAROXABAN 10 MG TABLET. PO SCH (08:00)
[2021-11-23] MEDS: ASPIRIN CHEWABLE 81 MG TABLET. PO SCH (08:00)
[2021-11-23] MEDS: CETIRIZINE HCL 10 MG TABLET PO SCH (08:00)
[2021-11-23] MEDS: LINAGLIPTIN 5 MG TABLET PO SCH (08:00)
[2021-11-23] MEDS: levETIRAcetam 500 MG TABLET PO SCH ×2 (08:00→20:20)
[2021-11-23] MEDS: SENNOSIDES/DOCUSATE 8.6/50MG TABLET. PO SCH ×2 (08:00→20:20)
[2021-11-23] MEDS: NYSTATIN 100,000 UNIT/GM TOPICAL CREAM 15GM TUBE. TP SCH ×2 (08:01→20:28)
[2021-11-23 15:56] VITALS: BP 103/54
[2021-11-23] MEDS: ARIPiprazole 10 MG TABLET PO SCH (16:04)
[2021-11-23] MEDS: diphenhydrAMINE HCL 25 MG CAPSULE PO PRN (20:28)
--- NOTE | 2021-11-23 21:20 | PDOC ---
Exam Note: Lewis Note: Please also refer to the separate dictated note~for this date of service dictated separately.~Patient seen individually. Discussed the patient with Nursing staff reviewed the chart.~Reviewed interim history and current functioning. Reviewed vital signs,~Labs/ Radiology~and current medications noted below. Continue current treatment with the changes noted in the dictated addendum note Assessment: Vital Signs/I&O: Vital Signs Date Time Temp Pulse Resp B/P (MAP) Pulse Ox O2 Delivery O2 Flow Rate FiO2 11/23/21 15:56 97.6 82 18 103/54 (70) 94 11/23/21 05:41 Room Air I & O 11/22/21 11/22/21 11/23/21 15:00 23:00 07:00 Intake Total 440 ml 720 ml Balance 440 ml 720 ml Labs: Laboratory Tests Test 11/23/21 07:30 Glucose (Fingerstick) 151 mg/dL (70-99) H Current Medications: Meds: Laboratory Tests Test 11/23/21 07:30 Glucose (Fingerstick) 151 mg/dL Current Medications Medications (Trade) Dose Ordered Sig/Ro Route PRN Reason Start Time Stop Time Status Last Admin Dose Admin Acetaminophen (Tylenol) 650 mg PRN Q6HRS PRN PO MILD PAIN / TEMP > 100.3'F 11/11/21 15:15 Multi-Ingredient Ointment (Analgesic [place]) 1 erik PRN QID PRN TP MUSCLE PAIN 11/11/21 15:15 Al Hydroxide/Mg Hydroxide (Mylanta Plus Xs) 15 ml PRN AFTMEALHC PRN PO DYSPEPSIA 11/11/21 15:15 Magnesium Hydroxide (Milk Of Magnesia) 2,400 mg PRN QHS PRN PO CONSTIPATION 11/11/21 15:15 Aripiprazole (Abilify) 10 mg HS PO 11/11/21 21:00 11/19/21 21:00 DC 11/19/21 20:06 Aspirin (Aspirin Chewable) 81 mg DAILY PO 11/12/21 09:00 11/23/21 08:00 Cetirizine HCl (ZyrTEC) 10 mg DAILY PO 11/12/21 09:00 11/23/21 08:00 Duloxetine HCl (Cymbalta) 60 mg BID PO 11/11/21 21:00 11/16/21 18:51 DC 11/16/21 08:01 Levetiracetam (Keppra) 500 mg BID PO 11/11/21 21:00 11/23/21 20:20 Levothyroxine Sodium (Synthroid) 100 mcg DAILY06 PO 11/12/21 06:00 11/23/21 05:41 Senna/Docusate Sodium (Senna Plus) 1 tab BID PO 11/11/21 21:00 11/23/21 20:20 Calcium Carbonate/ Glycine (Tums) 500 mg PRN Q4HRS PRN PO INDIGESTION 11/11/21 15:45 Diphenhydramine HCl (Benadryl) 25 mg PRN Q6HRS PRN PO ALLERGIES 11/11/21 15:45 11/23/21 20:28 Metformin HCl (Glucophage) 1,000 mg BIDWMEALS PO 11/12/21 17:30 11/23/21 16:04 Pantoprazole Sodium (Protonix) 40 mg DAILYAC PO 11/12/21 07:30 11/23/21 07:59 Rivaroxaban (Xarelto) 20 mg DAILY PO 11/12/21 09:00 11/23/21 08:00 Selenium Sulfide (Selsun) 1 erik WEEKLY TP 11/13/21 09:00 11/20/21 08:46 Linagliptin (Tradjenta) 5 mg DAILY PO 11/12/21 09:00 11/23/21 08:00 Nystatin (Nystop) 1 erik BID TP 11/11/21 21:00 11/13/21 17:18 DC 11/12/21 08:31 Trazodone HCl (Desyrel) 50 mg PRN QHS PRN PO insomnia 11/12/21 17:15 Vitamin D (Vitamin D3) 50,000 unit WEEKLY PO 11/12/21 18:00 11/19/21 08:47 Nystatin (Mycostatin) 1 erik BID TP 11/13/21 21:00 11/23/21 20:28 Cefdinir (Omnicef) 300 mg BID PO 11/15/21 21:00 11/21/21 22:00 DC 11/21/21 20:05 Lactobacillus Rhamnosus (Culturelle) 1 cap BID PO 11/16/21 21:00 11/23/21 20:20 Duloxetine HCl (Cymbalta) 60 mg DAILY PO 11/17/21 09:00 11/23/21 08:00 Bupropion HCl (Wellbutrin Xl) 150 mg DAILY PO 11/17/21 09:00 11/17/21 16:39 DC 11/17/21 08:37 Bupropion HCl (Wellbutrin Xl) 300 mg DAILY PO 11/20/21 09:00 11/20/21 18:51 DC Bupropion HCl (Wellbutrin) 75 mg 0900,1200 PO 11/18/21 09:00 11/20/21 20:00 DC 11/20/21 12:05 Bupropion HCl (Wellbutrin) 150 mg 0900,1200 PO 11/21/21 09:00 11/23/21 12:00 Aripiprazole (Abilify) 10 mg DAILYWSUP PO 11/20/21 17:00 11/23/21 16:04 I have reviewed the current psychotropics carefully including drug interactions. Risk benefit ratio favors no change other than as noted in my dictated progress note. Diagnosis: Problems: (1) Schizoaffective disorder, bipolar type (2) Impulse control disorder, unspecified (3) Anxiety disorder, unspecified (4) Major depressive disorder with psychotic features PILY MARQUEZ MD Nov 23, 2021 21:20
[2021-11-24] MEDS: LEVOTHYROXINE 100 MCG TABLET PO SCH (04:53)
[2021-11-24 06:09] VITALS: BP 94/65
[2021-11-24] MEDS: DULoxetine HCL 60 MG CAPSULE.DR PO SCH (07:47)
[2021-11-24] MEDS: levETIRAcetam 500 MG TABLET PO SCH ×2 (07:47→19:41)
[2021-11-24] MEDS: CETIRIZINE HCL 10 MG TABLET PO SCH (07:47)
[2021-11-24] MEDS: LACTOBACILLUS RHAMNOSUS GG 1 CAPSULE. PO SCH ×2 (07:47→19:41)
[2021-11-24] MEDS: SENNOSIDES/DOCUSATE 8.6/50MG TABLET. PO SCH ×2 (07:47→19:41)
[2021-11-24] MEDS: ASPIRIN CHEWABLE 81 MG TABLET. PO SCH (07:47)
[2021-11-24] MEDS: PANTOPRAZOLE 40 MG TABLET. PO SCH (07:48)
[2021-11-24] MEDS: LINAGLIPTIN 5 MG TABLET PO SCH (07:48)
[2021-11-24] MEDS: RIVAROXABAN 10 MG TABLET. PO SCH (07:48)
[2021-11-24] MEDS: buPROPion 75 MG TABLET PO SCH ×2 (07:48→12:44)
[2021-11-24] MEDS: metFORMIN 500 MG TABLET PO SCH ×2 (07:48→17:10)
[2021-11-24] MEDS: NYSTATIN 100,000 UNIT/GM TOPICAL CREAM 15GM TUBE. TP SCH ×2 (07:49→19:42)
[2021-11-24 16:09] VITALS: BP 101/71
[2021-11-24] MEDS: ARIPiprazole 10 MG TABLET PO SCH (17:09)
--- NOTE | 2021-11-24 21:26 | PDOC ---
Exam Note: Lewis Note: Please also refer to the separate dictated note~for this date of service dictated separately.~Patient seen individually. Discussed the patient with Nursing staff reviewed the chart.~Reviewed interim history and current functioning. Reviewed vital signs,~Labs/ Radiology~and current medications noted below. Continue current treatment with the changes noted in the dictated addendum note Assessment: Vital Signs/I&O: Vital Signs Date Time Temp Pulse Resp B/P (MAP) Pulse Ox O2 Delivery O2 Flow Rate FiO2 11/24/21 16:09 97.1 88 16 101/71 (81) 97 11/23/21 05:41 Room Air I & O 11/23/21 11/23/21 11/24/21 15:00 23:00 07:00 Intake Total 840 ml 360 ml Balance 840 ml 360 ml Labs: Laboratory Tests Test 11/24/21 07:33 Glucose (Fingerstick) 143 mg/dL (70-99) H Current Medications: Meds: Laboratory Tests Test 11/24/21 07:33 Glucose (Fingerstick) 143 mg/dL Current Medications Medications (Trade) Dose Ordered Sig/Ro Route PRN Reason Start Time Stop Time Status Last Admin Dose Admin Acetaminophen (Tylenol) 650 mg PRN Q6HRS PRN PO MILD PAIN / TEMP > 100.3'F 11/11/21 15:15 Multi-Ingredient Ointment (Analgesic [place]) 1 erik PRN QID PRN TP MUSCLE PAIN 11/11/21 15:15 Al Hydroxide/Mg Hydroxide (Mylanta Plus Xs) 15 ml PRN AFTMEALHC PRN PO DYSPEPSIA 11/11/21 15:15 Magnesium Hydroxide (Milk Of Magnesia) 2,400 mg PRN QHS PRN PO CONSTIPATION 11/11/21 15:15 Aripiprazole (Abilify) 10 mg HS PO 11/11/21 21:00 11/19/21 21:00 DC 11/19/21 20:06 Aspirin (Aspirin Chewable) 81 mg DAILY PO 11/12/21 09:00 11/24/21 07:47 Cetirizine HCl (ZyrTEC) 10 mg DAILY PO 11/12/21 09:00 11/24/21 07:47 Duloxetine HCl (Cymbalta) 60 mg BID PO 11/11/21 21:00 11/16/21 18:51 DC 11/16/21 08:01 Levetiracetam (Keppra) 500 mg BID PO 11/11/21 21:00 11/24/21 19:41 Levothyroxine Sodium (Synthroid) 100 mcg DAILY06 PO 11/12/21 06:00 11/24/21 04:53 Senna/Docusate Sodium (Senna Plus) 1 tab BID PO 11/11/21 21:00 11/24/21 19:41 Calcium Carbonate/ Glycine (Tums) 500 mg PRN Q4HRS PRN PO INDIGESTION 11/11/21 15:45 Diphenhydramine HCl (Benadryl) 25 mg PRN Q6HRS PRN PO ALLERGIES 11/11/21 15:45 11/23/21 20:28 Metformin HCl (Glucophage) 1,000 mg BIDWMEALS PO 11/12/21 17:30 11/24/21 17:10 Pantoprazole Sodium (Protonix) 40 mg DAILYAC PO 11/12/21 07:30 11/24/21 07:48 Rivaroxaban (Xarelto) 20 mg DAILY PO 11/12/21 09:00 11/24/21 07:48 Selenium Sulfide (Selsun) 1 erik WEEKLY TP 11/13/21 09:00 11/20/21 08:46 Linagliptin (Tradjenta) 5 mg DAILY PO 11/12/21 09:00 11/24/21 07:48 Nystatin (Nystop) 1 erik BID TP 11/11/21 21:00 11/13/21 17:18 DC 11/12/21 08:31 Trazodone HCl (Desyrel) 50 mg PRN QHS PRN PO insomnia 11/12/21 17:15 Vitamin D (Vitamin D3) 50,000 unit WEEKLY PO 11/12/21 18:00 11/19/21 08:47 Nystatin (Mycostatin) 1 erik BID TP 11/13/21 21:00 11/24/21 19:42 Cefdinir (Omnicef) 300 mg BID PO 11/15/21 21:00 11/21/21 22:00 DC 11/21/21 20:05 Lactobacillus Rhamnosus (Culturelle) 1 cap BID PO 11/16/21 21:00 11/24/21 19:41 Duloxetine HCl (Cymbalta) 60 mg DAILY PO 11/17/21 09:00 11/24/21 07:47 Bupropion HCl (Wellbutrin Xl) 150 mg DAILY PO 11/17/21 09:00 11/17/21 16:39 DC 11/17/21 08:37 Bupropion HCl (Wellbutrin Xl) 300 mg DAILY PO 11/20/21 09:00 11/20/21 18:51 DC Bupropion HCl (Wellbutrin) 75 mg 0900,1200 PO 11/18/21 09:00 11/20/21 20:00 DC 11/20/21 12:05 Bupropion HCl (Wellbutrin) 150 mg 0900,1200 PO 11/21/21 09:00 11/24/21 12:44 Aripiprazole (Abilify) 10 mg DAILYWSUP PO 11/20/21 17:00 11/24/21 17:09 I have reviewed the current psychotropics carefully including drug interactions. Risk benefit ratio favors no change other than as noted in my dictated progress note. Diagnosis: Problems: (1) Schizoaffective disorder, bipolar type (2) Impulse control disorder, unspecified (3) Anxiety disorder, unspecified (4) Major depressive disorder with psychotic features PILY MARQUEZ MD Nov 24, 2021 21:26
[2021-11-25] MEDS: LEVOTHYROXINE 100 MCG TABLET PO SCH (05:22)
[2021-11-25 06:16] VITALS: BP 108/70
[2021-11-25 06:24] LABS: BASO # 0.1 x10^3/uL (0.0-0.2); BASO % 1 % (0-3); EOS # 0.3 x10^3/uL (0.0-0.7); EOS % 4 % (0-3); HEMATOCRIT 37.1 % (36.0-47.0); HEMOGLOBIN 12.2 g/dL (12.0-15.5); LYMPH # 1.9 x10^3/uL (1.0-4.8); LYMPH % 20 % (24-48); MEAN CORPUSCULAR HEMOGLOBIN 29 pg (25-35); MEAN CORPUSCULAR HGB CONC 33 g/dL (31-37); MEAN CORPUSCULAR VOLUME 88 fL (79-100); MONO # 0.6 x10^3/uL (0.0-1.1); MONO % 6 % (0-9); NEUT # 6.6 x10^3uL (1.8-7.7); NEUT % 70 % (31-73); PLATELET COUNT 221 x10^3/uL (140-400); RED CELL DISTRIBUTION WIDTH 14.1 % (11.5-14.5); WHITE BLOOD COUNT 9.4 x10^3/uL (4.0-11.0)
[2021-11-25 06:51] LABS: ALBUMIN 2.9 g/dL (3.4-5.0); ALBUMIN/GLOBULIN RATIO 0.8 (1.0-1.7); CALCIUM 8.8 mg/dL (8.5-10.1); POTASSIUM 4.2 mmol/L (3.5-5.1); TOTAL BILIRUBIN 0.2 mg/dL (0.2-1.0); TOTAL PROTEIN 6.6 g/dL (6.4-8.2)
--- NOTE | 2021-11-25 07:37 | PDOC ---
Exam Note: Lewis Note: This note is a late entry for 11/23/2021 covers elements not covered in my initial note. Subjective: The patient was seen individually on 11/23/2021, discussed and reviewed the chart with Cleopatra MUELLER. The patient slept 7-1/4 hours previous night. Overall she is doing better, more interactive and talking to staff which is an improvement. I met with her in her room in the evening. Review of Systems: No CV, , pulmonary, eye, ENT system symptoms on review. Mental Status Exam: The patient is oriented to herself and situation. Speech is coherent. Abstraction fair. Computation impaired. Language function intact. Attention span short. Mood and affect improved. Laboratory Data: Reviewed. Impression: Schizoaffective disorder, bipolar type, depressed, in partial remission. Mild cognitive impairment. Anxiety disorder unspecified. Impulse control disorder unspecified. Plan: Continue current psychotropics. Assessment: Vital Signs/I&O: Vital Signs Date Time Temp Pulse Resp B/P (MAP) Pulse Ox O2 Delivery O2 Flow Rate FiO2 11/25/21 06:16 97.6 76 16 108/70 (83) 95 11/23/21 05:41 Room Air I & O 11/24/21 11/24/21 11/25/21 15:00 23:00 07:00 Intake Total 360 ml 360 ml Balance 360 ml 360 ml Labs: Laboratory Tests Test 11/25/21 06:10 11/25/21 07:31 White Blood Count 9.4 x10^3/uL (4.0-11.0) Red Blood Count 4.20 x10^6/uL (3.50-5.40) Hemoglobin 12.2 g/dL (12.0-15.5) Hematocrit 37.1 % (36.0-47.0) Mean Corpuscular Volume 88 fL (79-100) Mean Corpuscular Hemoglobin 29 pg (25-35) Mean Corpuscular Hemoglobin Concent 33 g/dL (31-37) Red Cell Distribution Width 14.1 % (11.5-14.5) Platelet Count 221 x10^3/uL (140-400) Neutrophils (%) (Auto) 70 % (31-73) Lymphocytes (%) (Auto) 20 % (24-48) L Monocytes (%) (Auto) 6 % (0-9) Eosinophils (%) (Auto) 4 % (0-3) H Basophils (%) (Auto) 1 % (0-3) Neutrophils # (Auto) 6.6 x10^3uL (1.8-7.7) Lymphocytes # (Auto) 1.9 x10^3/uL (1.0-4.8) Monocytes # (Auto) 0.6 x10^3/uL (0.0-1.1) Eosinophils # (Auto) 0.3 x10^3/uL (0.0-0.7) Basophils # (Auto) 0.1 x10^3/uL (0.0-0.2) Sodium Level 139 mmol/L (136-145) Potassium Level 4.2 mmol/L (3.5-5.1) Chloride Level 104 mmol/L (98-107) Carbon Dioxide Level 25 mmol/L (21-32) Anion Gap 10 (6-14) Blood Urea Nitrogen 18 mg/dL (7-20) Creatinine 1.0 mg/dL (0.6-1.0) Estimated GFR (Cockcroft-Gault) 55.0 BUN/Creatinine Ratio 18 (6-20) Glucose Level 121 mg/dL (70-99) H Calcium Level 8.8 mg/dL (8.5-10.1) Total Bilirubin 0.2 mg/dL (0.2-1.0) Aspartate Amino Transferase (AST) 25 U/L (15-37) Alanine Aminotransferase (ALT) 34 U/L (14-59) Alkaline Phosphatase 85 U/L (46-116) Total Protein 6.6 g/dL (6.4-8.2) Albumin 2.9 g/dL (3.4-5.0) L Albumin/Globulin Ratio 0.8 (1.0-1.7) L Glucose (Fingerstick) 122 mg/dL (70-99) H Current Medications: I have reviewed the current psychotropics carefully including drug interactions. Risk benefit ratio favors no change other than as noted in my dictated progress note. Diagnosis: Problems: (1) Schizoaffective disorder, bipolar type (2) Impulse control disorder, unspecified (3) Anxiety disorder, unspecified (4) Major depressive disorder with psychotic features PILY MARQUEZ MD Nov 25, 2021 07:37
--- NOTE | 2021-11-25 07:52 | PDOC ---
Exam Note: Lewis Note: This note is a late entry for 11/24/2021 covers elements not covered in my initial note. Subjective: The patient was seen individually on 11/24/2021, discussed and reviewed the chart with Perlita MUELLER. The patient slept 7 hours previous night. She has been little more interactive, less isolative later in the day even though she is little isolative in the morning. I met with her in her room. Review of Systems: No CV, , pulmonary, eye, ENT system symptoms on review. Mental Status Exam: The patient is oriented to herself and situation. Speech has some latency, coherent. Abstraction fair. Computation impaired. Language function intact. Attention span short. Mood and affect remains somewhat withdrawn, labile, anxious. Laboratory Data: Reviewed. Impression: Schizoaffective disorder, bipolar type, depressed, in partial remission. Mild cognitive impairment. Anxiety disorder unspecified. Impulse control disorder unspecified. Plan: Continue Cymbalta, Abilify and she is on Keppra for seizures, trazodone and Wellbutrin unchanged for now. Reviewed drug interactions and risk-benefit ratio. Assessment: Vital Signs/I&O: Vital Signs Date Time Temp Pulse Resp B/P (MAP) Pulse Ox O2 Delivery O2 Flow Rate FiO2 11/25/21 06:16 97.6 76 16 108/70 (83) 95 11/23/21 05:41 Room Air I & O 11/24/21 11/24/21 11/25/21 15:00 23:00 07:00 Intake Total 360 ml 360 ml Balance 360 ml 360 ml Labs: Laboratory Tests Test 11/25/21 06:10 11/25/21 07:31 White Blood Count 9.4 x10^3/uL (4.0-11.0) Red Blood Count 4.20 x10^6/uL (3.50-5.40) Hemoglobin 12.2 g/dL (12.0-15.5) Hematocrit 37.1 % (36.0-47.0) Mean Corpuscular Volume 88 fL (79-100) Mean Corpuscular Hemoglobin 29 pg (25-35) Mean Corpuscular Hemoglobin Concent 33 g/dL (31-37) Red Cell Distribution Width 14.1 % (11.5-14.5) Platelet Count 221 x10^3/uL (140-400) Neutrophils (%) (Auto) 70 % (31-73) Lymphocytes (%) (Auto) 20 % (24-48) L Monocytes (%) (Auto) 6 % (0-9) Eosinophils (%) (Auto) 4 % (0-3) H Basophils (%) (Auto) 1 % (0-3) Neutrophils # (Auto) 6.6 x10^3uL (1.8-7.7) Lymphocytes # (Auto) 1.9 x10^3/uL (1.0-4.8) Monocytes # (Auto) 0.6 x10^3/uL (0.0-1.1) Eosinophils # (Auto) 0.3 x10^3/uL (0.0-0.7) Basophils # (Auto) 0.1 x10^3/uL (0.0-0.2) Sodium Level 139 mmol/L (136-145) Potassium Level 4.2 mmol/L (3.5-5.1) Chloride Level 104 mmol/L (98-107) Carbon Dioxide Level 25 mmol/L (21-32) Anion Gap 10 (6-14) Blood Urea Nitrogen 18 mg/dL (7-20) Creatinine 1.0 mg/dL (0.6-1.0) Estimated GFR (Cockcroft-Gault) 55.0 BUN/Creatinine Ratio 18 (6-20) Glucose Level 121 mg/dL (70-99) H Calcium Level 8.8 mg/dL (8.5-10.1) Total Bilirubin 0.2 mg/dL (0.2-1.0) Aspartate Amino Transferase (AST) 25 U/L (15-37) Alanine Aminotransferase (ALT) 34 U/L (14-59) Alkaline Phosphatase 85 U/L (46-116) Total Protein 6.6 g/dL (6.4-8.2) Albumin 2.9 g/dL (3.4-5.0) L Albumin/Globulin Ratio 0.8 (1.0-1.7) L Glucose (Fingerstick) 122 mg/dL (70-99) H Current Medications: I have reviewed the current psychotropics carefully including drug interactions. Risk benefit ratio favors no change other than as noted in my dictated progress note. Diagnosis: Problems: (1) Schizoaffective disorder, bipolar type (2) Impulse control disorder, unspecified (3) Anxiety disorder, unspecified (4) Major depressive disorder with psychotic features PILY MARQUEZ MD Nov 25, 2021 07:52
[2021-11-25] MEDS: buPROPion 75 MG TABLET PO SCH ×2 (08:05→12:11)
[2021-11-25] MEDS: metFORMIN 500 MG TABLET PO SCH ×2 (08:05→16:56)
[2021-11-25] MEDS: RIVAROXABAN 10 MG TABLET. PO SCH (08:05)
[2021-11-25] MEDS: PANTOPRAZOLE 40 MG TABLET. PO SCH (08:05)
[2021-11-25] MEDS: SENNOSIDES/DOCUSATE 8.6/50MG TABLET. PO SCH ×2 (08:05→20:09)
[2021-11-25] MEDS: levETIRAcetam 500 MG TABLET PO SCH ×2 (08:05→20:09)
[2021-11-25] MEDS: LINAGLIPTIN 5 MG TABLET PO SCH (08:05)
[2021-11-25] MEDS: CETIRIZINE HCL 10 MG TABLET PO SCH (08:06)
[2021-11-25] MEDS: DULoxetine HCL 60 MG CAPSULE.DR PO SCH (08:06)
[2021-11-25] MEDS: LACTOBACILLUS RHAMNOSUS GG 1 CAPSULE. PO SCH ×2 (08:06→20:09)
[2021-11-25] MEDS: ASPIRIN CHEWABLE 81 MG TABLET. PO SCH (08:06)
[2021-11-25] MEDS: NYSTATIN 100,000 UNIT/GM TOPICAL CREAM 15GM TUBE. TP SCH ×2 (08:09→20:09)
[2021-11-25 15:43] VITALS: BP 102/67
[2021-11-25] MEDS: ARIPiprazole 10 MG TABLET PO SCH (16:56)
--- NOTE | 2021-11-25 21:23 | PDOC ---
Exam Note: Lewis Note: Please also refer to the separate dictated note~for this date of service dictated separately.~Patient seen individually. Discussed the patient with Nursing staff reviewed the chart.~Reviewed interim history and current functioning. Reviewed vital signs,~Labs/ Radiology~and current medications noted below. Continue current treatment with the changes noted in the dictated addendum note Assessment: Vital Signs/I&O: Vital Signs Date Time Temp Pulse Resp B/P (MAP) Pulse Ox O2 Delivery O2 Flow Rate FiO2 11/25/21 15:43 98.1 75 18 102/67 (79) 93 Room Air I & O 11/24/21 11/24/21 11/25/21 14:59 22:59 06:59 Intake Total 360 ml 360 ml Balance 360 ml 360 ml Labs: Laboratory Tests Test 11/25/21 06:10 11/25/21 07:31 White Blood Count 9.4 x10^3/uL (4.0-11.0) Red Blood Count 4.20 x10^6/uL (3.50-5.40) Hemoglobin 12.2 g/dL (12.0-15.5) Hematocrit 37.1 % (36.0-47.0) Mean Corpuscular Volume 88 fL (79-100) Mean Corpuscular Hemoglobin 29 pg (25-35) Mean Corpuscular Hemoglobin Concent 33 g/dL (31-37) Red Cell Distribution Width 14.1 % (11.5-14.5) Platelet Count 221 x10^3/uL (140-400) Neutrophils (%) (Auto) 70 % (31-73) Lymphocytes (%) (Auto) 20 % (24-48) L Monocytes (%) (Auto) 6 % (0-9) Eosinophils (%) (Auto) 4 % (0-3) H Basophils (%) (Auto) 1 % (0-3) Neutrophils # (Auto) 6.6 x10^3uL (1.8-7.7) Lymphocytes # (Auto) 1.9 x10^3/uL (1.0-4.8) Monocytes # (Auto) 0.6 x10^3/uL (0.0-1.1) Eosinophils # (Auto) 0.3 x10^3/uL (0.0-0.7) Basophils # (Auto) 0.1 x10^3/uL (0.0-0.2) Sodium Level 139 mmol/L (136-145) Potassium Level 4.2 mmol/L (3.5-5.1) Chloride Level 104 mmol/L (98-107) Carbon Dioxide Level 25 mmol/L (21-32) Anion Gap 10 (6-14) Blood Urea Nitrogen 18 mg/dL (7-20) Creatinine 1.0 mg/dL (0.6-1.0) Estimated GFR (Cockcroft-Gault) 55.0 BUN/Creatinine Ratio 18 (6-20) Glucose Level 121 mg/dL (70-99) H Calcium Level 8.8 mg/dL (8.5-10.1) Total Bilirubin 0.2 mg/dL (0.2-1.0) Aspartate Amino Transferase (AST) 25 U/L (15-37) Alanine Aminotransferase (ALT) 34 U/L (14-59) Alkaline Phosphatase 85 U/L (46-116) Total Protein 6.6 g/dL (6.4-8.2) Albumin 2.9 g/dL (3.4-5.0) L Albumin/Globulin Ratio 0.8 (1.0-1.7) L Glucose (Fingerstick) 122 mg/dL (70-99) H Current Medications: Meds: Laboratory Tests Test 11/25/21 06:10 11/25/21 07:31 White Blood Count 9.4 x10^3/uL Red Blood Count 4.20 x10^6/uL Hemoglobin 12.2 g/dL Hematocrit 37.1 % Mean Corpuscular Volume 88 fL Mean Corpuscular Hemoglobin 29 pg Mean Corpuscular Hemoglobin Concent 33 g/dL Red Cell Distribution Width 14.1 % Platelet Count 221 x10^3/uL Neutrophils (%) (Auto) 70 % Lymphocytes (%) (Auto) 20 % Monocytes (%) (Auto) 6 % Eosinophils (%) (Auto) 4 % Basophils (%) (Auto) 1 % Neutrophils # (Auto) 6.6 x10^3uL Lymphocytes # (Auto) 1.9 x10^3/uL Monocytes # (Auto) 0.6 x10^3/uL Eosinophils # (Auto) 0.3 x10^3/uL Basophils # (Auto) 0.1 x10^3/uL Sodium Level 139 mmol/L Potassium Level 4.2 mmol/L Chloride Level 104 mmol/L Carbon Dioxide Level 25 mmol/L Anion Gap 10 Blood Urea Nitrogen 18 mg/dL Creatinine 1.0 mg/dL Estimated GFR (Cockcroft-Gault) 55.0 BUN/Creatinine Ratio 18 Glucose Level 121 mg/dL Calcium Level 8.8 mg/dL Total Bilirubin 0.2 mg/dL Aspartate Amino Transf (AST/SGOT) 25 U/L Alanine Aminotransferase (ALT/SGPT) 34 U/L Alkaline Phosphatase 85 U/L Total Protein 6.6 g/dL Albumin 2.9 g/dL Albumin/Globulin Ratio 0.8 Glucose (Fingerstick) 122 mg/dL Current Medications Medications (Trade) Dose Ordered Sig/Ro Route PRN Reason Start Time Stop Time Status Last Admin Dose Admin Acetaminophen (Tylenol) 650 mg PRN Q6HRS PRN PO MILD PAIN / TEMP > 100.3'F 11/11/21 15:15 Multi-Ingredient Ointment (Analgesic [place]) 1 erik PRN QID PRN TP MUSCLE PAIN 11/11/21 15:15 Al Hydroxide/Mg Hydroxide (Mylanta Plus Xs) 15 ml PRN AFTMEALHC PRN PO DYSPEPSIA 11/11/21 15:15 Magnesium Hydroxide (Milk Of Magnesia) 2,400 mg PRN QHS PRN PO CONSTIPATION 11/11/21 15:15 Aripiprazole (Abilify) 10 mg HS PO 11/11/21 21:00 11/19/21 21:00 DC 11/19/21 20:06 Aspirin (Aspirin Chewable) 81 mg DAILY PO 11/12/21 09:00 11/25/21 08:06 Cetirizine HCl (ZyrTEC) 10 mg DAILY PO 11/12/21 09:00 11/25/21 08:06 Duloxetine HCl (Cymbalta) 60 mg BID PO 11/11/21 21:00 11/16/21 18:51 DC 11/16/21 08:01 Levetiracetam (Keppra) 500 mg BID PO 11/11/21 21:00 11/25/21 20:09 Levothyroxine Sodium (Synthroid) 100 mcg DAILY06 PO 11/12/21 06:00 11/25/21 05:22 Senna/Docusate Sodium (Senna Plus) 1 tab BID PO 11/11/21 21:00 11/25/21 20:09 Calcium Carbonate/ Glycine (Tums) 500 mg PRN Q4HRS PRN PO INDIGESTION 11/11/21 15:45 Diphenhydramine HCl (Benadryl) 25 mg PRN Q6HRS PRN PO ALLERGIES 11/11/21 15:45 11/23/21 20:28 Metformin HCl (Glucophage) 1,000 mg BIDWMEALS PO 11/12/21 17:30 11/25/21 16:56 Pantoprazole Sodium (Protonix) 40 mg DAILYAC PO 11/12/21 07:30 11/25/21 08:05 Rivaroxaban (Xarelto) 20 mg DAILY PO 11/12/21 09:00 11/25/21 08:05 Selenium Sulfide (Selsun) 1 erik WEEKLY TP 11/13/21 09:00 11/20/21 08:46 Linagliptin (Tradjenta) 5 mg DAILY PO 11/12/21 09:00 11/25/21 08:05 Nystatin (Nystop) 1 erik BID TP 11/11/21 21:00 11/13/21 17:18 DC 11/12/21 08:31 Trazodone HCl (Desyrel) 50 mg PRN QHS PRN PO insomnia 11/12/21 17:15 Vitamin D (Vitamin D3) 50,000 unit WEEKLY PO 11/12/21 18:00 11/19/21 08:47 Nystatin (Mycostatin) 1 erik BID TP 11/13/21 21:00 11/25/21 20:09 Cefdinir (Omnicef) 300 mg BID PO 11/15/21 21:00 11/21/21 22:00 DC 11/21/21 20:05 Lactobacillus Rhamnosus (Culturelle) 1 cap BID PO 11/16/21 21:00 11/25/21 20:09 Duloxetine HCl (Cymbalta) 60 mg DAILY PO 11/17/21 09:00 11/25/21 08:06 Bupropion HCl (Wellbutrin Xl) 150 mg DAILY PO 11/17/21 09:00 11/17/21 16:39 DC 11/17/21 08:37 Bupropion HCl (Wellbutrin Xl) 300 mg DAILY PO 11/20/21 09:00 11/20/21 18:51 DC Bupropion HCl (Wellbutrin) 75 mg 0900,1200 PO 11/18/21 09:00 11/20/21 20:00 DC 11/20/21 12:05 Bupropion HCl (Wellbutrin) 150 mg 0900,1200 PO 11/21/21 09:00 11/25/21 12:11 Aripiprazole (Abilify) 10 mg DAILYWSUP PO 11/20/21 17:00 11/25/21 16:56 I have reviewed the current psychotropics carefully including drug interactions. Risk benefit ratio favors no change other than as noted in my dictated progress note. Diagnosis: Problems: (1) Schizoaffective disorder, bipolar type (2) Impulse control disorder, unspecified (3) Anxiety disorder, unspecified (4) Major depressive disorder with psychotic features PILY MARQUEZ MD Nov 25, 2021 21:23
[2021-11-26] MEDS: LEVOTHYROXINE 100 MCG TABLET PO SCH (05:32)
[2021-11-26 06:01] VITALS: BP 102/57
[2021-11-26] MEDS: metFORMIN 500 MG TABLET PO SCH ×2 (08:33→17:17)
[2021-11-26] MEDS: LACTOBACILLUS RHAMNOSUS GG 1 CAPSULE. PO SCH ×2 (08:33→20:20)
[2021-11-26] MEDS: SENNOSIDES/DOCUSATE 8.6/50MG TABLET. PO SCH ×2 (08:33→20:20)
[2021-11-26] MEDS: levETIRAcetam 500 MG TABLET PO SCH ×2 (08:33→20:21)
[2021-11-26] MEDS: CETIRIZINE HCL 10 MG TABLET PO SCH (08:33)
[2021-11-26] MEDS: RIVAROXABAN 10 MG TABLET. PO SCH (08:33)
[2021-11-26] MEDS: PANTOPRAZOLE 40 MG TABLET. PO SCH (08:33)
[2021-11-26] MEDS: LINAGLIPTIN 5 MG TABLET PO SCH (08:33)
[2021-11-26] MEDS: buPROPion 75 MG TABLET PO SCH ×2 (08:33→12:00)
[2021-11-26] MEDS: ASPIRIN CHEWABLE 81 MG TABLET. PO SCH (08:33)
[2021-11-26] MEDS: DULoxetine HCL 60 MG CAPSULE.DR PO SCH (08:34)
[2021-11-26] MEDS: CHOLECALCIFEROL (VITAMIN D3) 50,000 UNIT CAPSULE PO SCH (09:00)
[2021-11-26] MEDS: NYSTATIN 100,000 UNIT/GM TOPICAL CREAM 15GM TUBE. TP SCH ×2 (09:00→20:21)
[2021-11-26 15:42] VITALS: BP 90/55
[2021-11-26] MEDS: ARIPiprazole 10 MG TABLET PO SCH (17:17)
--- NOTE | 2021-11-26 21:49 | PDOC ---
Exam Note: Lewis Note: Please also refer to the separate dictated note~for this date of service dictated separately.~Patient seen individually. Discussed the patient with Nursing staff reviewed the chart.~Reviewed interim history and current functioning. Reviewed vital signs,~Labs/ Radiology~and current medications noted below. Continue current treatment with the changes noted in the dictated addendum note Assessment: Vital Signs/I&O: Vital Signs Date Time Temp Pulse Resp B/P (MAP) Pulse Ox O2 Delivery O2 Flow Rate FiO2 11/26/21 15:42 98.0 80 19 90/55 (67) 93 11/25/21 15:43 Room Air I & O 11/25/21 11/25/21 11/26/21 15:00 23:00 07:00 Intake Total 720 ml 600 ml Balance 720 ml 600 ml Labs: Laboratory Tests Test 11/26/21 07:52 Glucose (Fingerstick) 108 mg/dL (70-99) H Current Medications: Meds: Laboratory Tests Test 11/26/21 07:52 Glucose (Fingerstick) 108 mg/dL Current Medications Medications (Trade) Dose Ordered Sig/Ro Route PRN Reason Start Time Stop Time Status Last Admin Dose Admin Acetaminophen (Tylenol) 650 mg PRN Q6HRS PRN PO MILD PAIN / TEMP > 100.3'F 11/11/21 15:15 Multi-Ingredient Ointment (Analgesic [place]) 1 erik PRN QID PRN TP MUSCLE PAIN 11/11/21 15:15 Al Hydroxide/Mg Hydroxide (Mylanta Plus Xs) 15 ml PRN AFTMEALHC PRN PO DYSPEPSIA 11/11/21 15:15 Magnesium Hydroxide (Milk Of Magnesia) 2,400 mg PRN QHS PRN PO CONSTIPATION 11/11/21 15:15 Aripiprazole (Abilify) 10 mg HS PO 11/11/21 21:00 11/19/21 21:00 DC 11/19/21 20:06 Aspirin (Aspirin Chewable) 81 mg DAILY PO 11/12/21 09:00 11/26/21 08:33 Cetirizine HCl (ZyrTEC) 10 mg DAILY PO 11/12/21 09:00 11/26/21 08:33 Duloxetine HCl (Cymbalta) 60 mg BID PO 11/11/21 21:00 11/16/21 18:51 DC 11/16/21 08:01 Levetiracetam (Keppra) 500 mg BID PO 11/11/21 21:00 11/26/21 20:21 Levothyroxine Sodium (Synthroid) 100 mcg DAILY06 PO 11/12/21 06:00 11/26/21 05:32 Senna/Docusate Sodium (Senna Plus) 1 tab BID PO 11/11/21 21:00 11/26/21 20:20 Calcium Carbonate/ Glycine (Tums) 500 mg PRN Q4HRS PRN PO INDIGESTION 11/11/21 15:45 Diphenhydramine HCl (Benadryl) 25 mg PRN Q6HRS PRN PO ALLERGIES 11/11/21 15:45 11/23/21 20:28 Metformin HCl (Glucophage) 1,000 mg BIDWMEALS PO 11/12/21 17:30 11/26/21 17:17 Pantoprazole Sodium (Protonix) 40 mg DAILYAC PO 11/12/21 07:30 11/26/21 08:33 Rivaroxaban (Xarelto) 20 mg DAILY PO 11/12/21 09:00 11/26/21 08:33 Selenium Sulfide (Selsun) 1 erik WEEKLY TP 11/13/21 09:00 11/20/21 08:46 Linagliptin (Tradjenta) 5 mg DAILY PO 11/12/21 09:00 11/26/21 08:33 Nystatin (Nystop) 1 erik BID TP 11/11/21 21:00 11/13/21 17:18 DC 11/12/21 08:31 Trazodone HCl (Desyrel) 50 mg PRN QHS PRN PO insomnia 11/12/21 17:15 Vitamin D (Vitamin D3) 50,000 unit WEEKLY PO 11/12/21 18:00 11/26/21 09:00 Nystatin (Mycostatin) 1 erik BID TP 11/13/21 21:00 11/26/21 20:21 Cefdinir (Omnicef) 300 mg BID PO 11/15/21 21:00 11/21/21 22:00 DC 11/21/21 20:05 Lactobacillus Rhamnosus (Culturelle) 1 cap BID PO 11/16/21 21:00 11/26/21 20:20 Duloxetine HCl (Cymbalta) 60 mg DAILY PO 11/17/21 09:00 11/26/21 10:14 DC 11/26/21 08:34 Bupropion HCl (Wellbutrin Xl) 150 mg DAILY PO 11/17/21 09:00 11/17/21 16:39 DC 11/17/21 08:37 Bupropion HCl (Wellbutrin Xl) 300 mg DAILY PO 11/20/21 09:00 11/20/21 18:51 DC Bupropion HCl (Wellbutrin) 75 mg 0900,1200 PO 11/18/21 09:00 11/20/21 20:00 DC 11/20/21 12:05 Bupropion HCl (Wellbutrin) 150 mg 0900,1200 PO 11/21/21 09:00 11/26/21 10:56 DC 11/26/21 08:33 Aripiprazole (Abilify) 10 mg DAILYWSUP PO 11/20/21 17:00 11/26/21 17:17 Duloxetine HCl (Cymbalta) 40 mg DAILY PO 11/27/21 09:00 Bupropion HCl (Wellbutrin) 225 mg DAILY PO 11/27/21 09:00 Bupropion HCl (Wellbutrin) 150 mg 1200 PO 11/26/21 12:00 11/26/21 12:00 Current Medications Medications (Trade) Dose Ordered Sig/Ro Route PRN Reason Start Time Stop Time Status Last Admin Dose Admin Bupropion HCl (Wellbutrin) 150 mg 1200 PO 11/26/21 12:00 11/26/21 12:00 I have reviewed the current psychotropics carefully including drug interactions. Risk benefit ratio favors no change other than as noted in my dictated progress note. Diagnosis: Problems: (1) Schizoaffective disorder, bipolar type (2) Impulse control disorder, unspecified (3) Anxiety disorder, unspecified (4) Major depressive disorder with psychotic features PILY MARQUEZ MD Nov 26, 2021 21:49
[2021-11-27] MEDS: LEVOTHYROXINE 100 MCG TABLET PO SCH (05:45)
[2021-11-27 05:51] VITALS: BP 110/71
[2021-11-27] MEDS: buPROPion 75 MG TABLET PO SCH ×2 (08:36→11:59)
[2021-11-27] MEDS: ASPIRIN CHEWABLE 81 MG TABLET. PO SCH (08:36)
[2021-11-27] MEDS: CETIRIZINE HCL 10 MG TABLET PO SCH (08:37)
[2021-11-27] MEDS: LACTOBACILLUS RHAMNOSUS GG 1 CAPSULE. PO SCH ×2 (08:37→20:18)
[2021-11-27] MEDS: LINAGLIPTIN 5 MG TABLET PO SCH (08:37)
[2021-11-27] MEDS: RIVAROXABAN 10 MG TABLET. PO SCH (08:37)
[2021-11-27] MEDS: metFORMIN 500 MG TABLET PO SCH ×2 (08:37→17:14)
[2021-11-27] MEDS: levETIRAcetam 500 MG TABLET PO SCH ×2 (08:37→20:18)
[2021-11-27] MEDS: SENNOSIDES/DOCUSATE 8.6/50MG TABLET. PO SCH ×2 (08:37→20:18)
[2021-11-27] MEDS: PANTOPRAZOLE 40 MG TABLET. PO SCH (08:37)
[2021-11-27] MEDS: DULoxetine HCL 20 MG CAPSULE.DR PO SCH (08:37)
[2021-11-27] MEDS: SELENIUM SULFIDE 1% TOPICAL SHAMPOO 207ML BOTTLE. TP SCH (09:00)
[2021-11-27] MEDS: NYSTATIN 100,000 UNIT/GM TOPICAL CREAM 15GM TUBE. TP SCH ×2 (09:00→20:21)
[2021-11-27 15:58] VITALS: BP 105/71
[2021-11-27] MEDS: ARIPiprazole 10 MG TABLET PO SCH (17:14)
--- NOTE | 2021-11-27 20:53 | PDOC ---
Exam Note: Lewis Note: Please also refer to the separate dictated note~for this date of service dictated separately.~Patient seen individually. Discussed the patient with Nursing staff reviewed the chart.~Reviewed interim history and current functioning. Reviewed vital signs,~Labs/ Radiology~and current medications noted below. Continue current treatment with the changes noted in the dictated addendum note Assessment: Vital Signs/I&O: Vital Signs Date Time Temp Pulse Resp B/P (MAP) Pulse Ox O2 Delivery O2 Flow Rate FiO2 11/27/21 15:58 97.8 78 18 105/71 (82) 94 Room Air I & O 11/26/21 11/26/21 11/27/21 15:00 23:00 07:00 Intake Total 760 ml 360 ml Balance 760 ml 360 ml Labs: Laboratory Tests Test 11/27/21 07:33 Glucose (Fingerstick) 206 mg/dL (70-99) H Current Medications: Meds: Laboratory Tests Test 11/27/21 07:33 Glucose (Fingerstick) 206 mg/dL Current Medications Medications (Trade) Dose Ordered Sig/Ro Route PRN Reason Start Time Stop Time Status Last Admin Dose Admin Acetaminophen (Tylenol) 650 mg PRN Q6HRS PRN PO MILD PAIN / TEMP > 100.3'F 11/11/21 15:15 Multi-Ingredient Ointment (Analgesic [place]) 1 erik PRN QID PRN TP MUSCLE PAIN 11/11/21 15:15 Al Hydroxide/Mg Hydroxide (Mylanta Plus Xs) 15 ml PRN AFTMEALHC PRN PO DYSPEPSIA 11/11/21 15:15 Magnesium Hydroxide (Milk Of Magnesia) 2,400 mg PRN QHS PRN PO CONSTIPATION 11/11/21 15:15 Aripiprazole (Abilify) 10 mg HS PO 11/11/21 21:00 11/19/21 21:00 DC 11/19/21 20:06 Aspirin (Aspirin Chewable) 81 mg DAILY PO 11/12/21 09:00 11/27/21 08:36 Cetirizine HCl (ZyrTEC) 10 mg DAILY PO 11/12/21 09:00 11/27/21 08:37 Duloxetine HCl (Cymbalta) 60 mg BID PO 11/11/21 21:00 11/16/21 18:51 DC 11/16/21 08:01 Levetiracetam (Keppra) 500 mg BID PO 11/11/21 21:00 11/27/21 20:18 Levothyroxine Sodium (Synthroid) 100 mcg DAILY06 PO 11/12/21 06:00 11/27/21 05:45 Senna/Docusate Sodium (Senna Plus) 1 tab BID PO 11/11/21 21:00 11/27/21 20:18 Calcium Carbonate/ Glycine (Tums) 500 mg PRN Q4HRS PRN PO INDIGESTION 11/11/21 15:45 Diphenhydramine HCl (Benadryl) 25 mg PRN Q6HRS PRN PO ALLERGIES 11/11/21 15:45 11/23/21 20:28 Metformin HCl (Glucophage) 1,000 mg BIDWMEALS PO 11/12/21 17:30 11/27/21 17:14 Pantoprazole Sodium (Protonix) 40 mg DAILYAC PO 11/12/21 07:30 11/27/21 08:37 Rivaroxaban (Xarelto) 20 mg DAILY PO 11/12/21 09:00 11/27/21 08:37 Selenium Sulfide (Selsun) 1 erik WEEKLY TP 11/13/21 09:00 11/27/21 09:00 Linagliptin (Tradjenta) 5 mg DAILY PO 11/12/21 09:00 11/27/21 08:37 Nystatin (Nystop) 1 erik BID TP 11/11/21 21:00 11/13/21 17:18 DC 11/12/21 08:31 Trazodone HCl (Desyrel) 50 mg PRN QHS PRN PO insomnia 11/12/21 17:15 Vitamin D (Vitamin D3) 50,000 unit WEEKLY PO 11/12/21 18:00 11/26/21 09:00 Nystatin (Mycostatin) 1 erik BID TP 11/13/21 21:00 11/27/21 20:21 Cefdinir (Omnicef) 300 mg BID PO 11/15/21 21:00 11/21/21 22:00 DC 11/21/21 20:05 Lactobacillus Rhamnosus (Culturelle) 1 cap BID PO 11/16/21 21:00 11/27/21 20:18 Duloxetine HCl (Cymbalta) 60 mg DAILY PO 11/17/21 09:00 11/26/21 10:14 DC 11/26/21 08:34 Bupropion HCl (Wellbutrin Xl) 150 mg DAILY PO 11/17/21 09:00 11/17/21 16:39 DC 11/17/21 08:37 Bupropion HCl (Wellbutrin Xl) 300 mg DAILY PO 11/20/21 09:00 11/20/21 18:51 DC Bupropion HCl (Wellbutrin) 75 mg 0900,1200 PO 11/18/21 09:00 11/20/21 20:00 DC 11/20/21 12:05 Bupropion HCl (Wellbutrin) 150 mg 0900,1200 PO 11/21/21 09:00 11/26/21 10:56 DC 11/26/21 08:33 Aripiprazole (Abilify) 10 mg DAILYWSUP PO 11/20/21 17:00 11/27/21 17:14 Duloxetine HCl (Cymbalta) 40 mg DAILY PO 11/27/21 09:00 11/27/21 08:37 Bupropion HCl (Wellbutrin) 225 mg DAILY PO 11/27/21 09:00 11/27/21 08:36 Bupropion HCl (Wellbutrin) 150 mg 1200 PO 11/26/21 12:00 11/27/21 11:59 Current Medications Medications (Trade) Dose Ordered Sig/Ro Route PRN Reason Start Time Stop Time Status Last Admin Dose Admin Duloxetine HCl (Cymbalta) 40 mg DAILY PO 11/27/21 09:00 11/27/21 08:37 Bupropion HCl (Wellbutrin) 225 mg DAILY PO 11/27/21 09:00 11/27/21 08:36 I have reviewed the current psychotropics carefully including drug interactions. Risk benefit ratio favors no change other than as noted in my dictated progress note. Diagnosis: Problems: (1) Schizoaffective disorder, bipolar type (2) Impulse control disorder, unspecified (3) Anxiety disorder, unspecified (4) Major depressive disorder with psychotic features PILY MARQUEZ MD Nov 27, 2021 20:53
[2021-11-28] MEDS: LEVOTHYROXINE 100 MCG TABLET PO SCH (05:59)
[2021-11-28 06:21] VITALS: BP 141/80
[2021-11-28] MEDS: ASPIRIN CHEWABLE 81 MG TABLET. PO SCH (08:05)
[2021-11-28] MEDS: LINAGLIPTIN 5 MG TABLET PO SCH (08:05)
[2021-11-28] MEDS: CETIRIZINE HCL 10 MG TABLET PO SCH (08:06)
[2021-11-28] MEDS: levETIRAcetam 500 MG TABLET PO SCH ×2 (08:06→17:10)
[2021-11-28] MEDS: RIVAROXABAN 10 MG TABLET. PO SCH (08:06)
[2021-11-28] MEDS: buPROPion 75 MG TABLET PO SCH ×2 (08:06→12:00)
[2021-11-28] MEDS: PANTOPRAZOLE 40 MG TABLET. PO SCH (08:06)
[2021-11-28] MEDS: LACTOBACILLUS RHAMNOSUS GG 1 CAPSULE. PO SCH ×2 (08:06→17:10)
[2021-11-28] MEDS: metFORMIN 500 MG TABLET PO SCH ×2 (08:06→17:10)
[2021-11-28] MEDS: SENNOSIDES/DOCUSATE 8.6/50MG TABLET. PO SCH ×2 (08:07→17:10)
[2021-11-28] MEDS: DULoxetine HCL 20 MG CAPSULE.DR PO SCH (08:07)
[2021-11-28] MEDS: NYSTATIN 100,000 UNIT/GM TOPICAL CREAM 15GM TUBE. TP SCH ×2 (08:07→21:00)
--- NOTE | 2021-11-28 08:28 | PDOC ---
Exam Note: Lewis Note: This note is a late entry for 11/26/2021 covers elements not covered in my initial note. Subjective: The patient was reviewed at treatment team meeting in the morning on 11/26/2021 with Lu Cervantes, Sunni Sahu, and Susana More (social service agency director), Shirley, activity therapy, Stacy Gonzalez, [employer] Scrubber Operator, and Yady MUELLER, discussed and reviewed the chart. Discussed and reviewed her diagnoses, current psychotropic medications, drug interactions and risk-benefit ratio reviewed and discharge and after care plans and placement was discussed. The patient slept 8 hours previous night. Appetite is 75%. The patient has been isolative, spends much time in her room but much more awake and alert, smiling as I met with her. I met with her in her room in the evening. Review of Systems: No CV, , pulmonary, eye, ENT system symptoms on review. Mental Status Exam: The patient is oriented to herself and situation. Speech coherent. Abstraction fair. Computation impaired. Language function intact. Attention span short. Mood and affect remains somewhat anxious. Laboratory Data: Reviewed. Impression: Schizoaffective disorder, bipolar type, depressed, in partial remission. Mild cognitive impairment. Anxiety disorder unspecified. Impulse control disorder unspecified. Plan: The patient is currently on Wellbutrin 150 mg twice a day. We will increase to 225 mg in the morning, 150 mg in the afternoon and to compensate for this, reduce Cymbalta from 60 mg a day to 40 mg a day. Maintain Abilify and changed Keppra for her seizures, trazodone p.r.n. insomnia. Rest unchanged for now. Assessment: Vital Signs/I&O: Vital Signs Date Time Temp Pulse Resp B/P (MAP) Pulse Ox O2 Delivery O2 Flow Rate FiO2 11/28/21 06:21 98.1 78 18 141/80 (100) 97 11/27/21 15:58 Room Air I & O 11/27/21 11/27/21 11/28/21 15:00 23:00 07:00 Intake Total 980 ml 387 ml Balance 980 ml 387 ml Labs: Laboratory Tests Test 11/28/21 07:40 Glucose (Fingerstick) 125 mg/dL (70-99) H Current Medications: Meds: Current Medications Medications (Trade) Dose Ordered Sig/Ro Route PRN Reason Start Time Stop Time Status Last Admin Dose Admin Duloxetine HCl (Cymbalta) 40 mg DAILY PO 11/27/21 09:00 11/28/21 08:07 Bupropion HCl (Wellbutrin) 225 mg DAILY PO 11/27/21 09:00 11/28/21 08:06 I have reviewed the current psychotropics carefully including drug interactions. Risk benefit ratio favors no change other than as noted in my dictated progress note. Diagnosis: Problems: (1) Schizoaffective disorder, bipolar type (2) Impulse control disorder, unspecified (3) Anxiety disorder, unspecified (4) Major depressive disorder with psychotic features PILY MARQUEZ MD Nov 28, 2021 08:28
--- NOTE | 2021-11-28 08:41 | PDOC ---
Exam Note: Lewis Note: This note is a late entry for 11/27/2021 covers elements not covered in my initial note. Subjective: The patient was seen individually on 11/27/2021, discussed and reviewed the chart with Yady MUELLER. She slept 10 hours previous night. She has been more interactive, smiling, verbalizes, little more interactive at meal times, comes to the dining room. She is pleasant, smiling as I met with her in her room in the evening. Review of Systems: No CV, , pulmonary, eye, ENT system symptoms on review. Reliability varies. Mental Status Exam: The patient is oriented to herself and situation. Speech moderate latency. Often response is monosyllabic. Abstraction fair. Computation impaired. Language function intact. Mood and affect withdrawn but less so than before. Laboratory Data: Reviewed. Impression: Schizoaffective disorder, bipolar type, depressed, in partial remission. Mild cognitive impairment. Anxiety disorder unspecified. Impulse control disorder unspecified. Plan: No change from initial note. Assessment: Vital Signs/I&O: Vital Signs Date Time Temp Pulse Resp B/P (MAP) Pulse Ox O2 Delivery O2 Flow Rate FiO2 11/28/21 06:21 98.1 78 18 141/80 (100) 97 11/27/21 15:58 Room Air I & O 11/27/21 11/27/21 11/28/21 14:59 22:59 06:59 Intake Total 980 ml 387 ml Balance 980 ml 387 ml Labs: Laboratory Tests Test 11/28/21 07:40 Glucose (Fingerstick) 125 mg/dL (70-99) H Current Medications: Meds: Current Medications Medications (Trade) Dose Ordered Sig/Ro Route PRN Reason Start Time Stop Time Status Last Admin Dose Admin Duloxetine HCl (Cymbalta) 40 mg DAILY PO 11/27/21 09:00 11/28/21 08:07 Bupropion HCl (Wellbutrin) 225 mg DAILY PO 11/27/21 09:00 11/28/21 08:06 I have reviewed the current psychotropics carefully including drug interactions. Risk benefit ratio favors no change other than as noted in my dictated progress note. Diagnosis: Problems: (1) Schizoaffective disorder, bipolar type (2) Impulse control disorder, unspecified (3) Anxiety disorder, unspecified (4) Major depressive disorder with psychotic features PILY MARQUEZ MDb 12, 2022 08:41
[2021-11-28 15:38] VITALS: BP 100/59
[2021-11-28] MEDS: ARIPiprazole 10 MG TABLET PO SCH (17:10)
[2021-11-28] MEDS: INSULIN GLARGINE SYRINGE. SQ SCH (21:23)
--- NOTE | 2021-11-28 22:10 | PDOC ---
Exam Note: Lewis Note: Please also refer to the separate dictated note~for this date of service dictated separately.~Patient seen individually. Discussed the patient with Nursing staff reviewed the chart.~Reviewed interim history and current functioning. Reviewed vital signs,~Labs/ Radiology~and current medications noted below. Continue current treatment with the changes noted in the dictated addendum note Assessment: Vital Signs/I&O: Vital Signs Date Time Temp Pulse Resp B/P (MAP) Pulse Ox O2 Delivery O2 Flow Rate FiO2 11/28/21 15:38 97.0 74 17 100/59 (73) 95 Room Air I & O 11/27/21 11/27/21 11/28/21 15:00 23:00 07:00 Intake Total 980 ml 387 ml Balance 980 ml 387 ml Labs: Laboratory Tests Test 11/28/21 07:40 Glucose (Fingerstick) 125 mg/dL (70-99) H Current Medications: Meds: Laboratory Tests Test 11/28/21 07:40 Glucose (Fingerstick) 125 mg/dL Current Medications Medications (Trade) Dose Ordered Sig/Ro Route PRN Reason Start Time Stop Time Status Last Admin Dose Admin Acetaminophen (Tylenol) 650 mg PRN Q6HRS PRN PO MILD PAIN / TEMP > 100.3'F 11/11/21 15:15 Multi-Ingredient Ointment (Analgesic [place]) 1 erik PRN QID PRN TP MUSCLE PAIN 11/11/21 15:15 Al Hydroxide/Mg Hydroxide (Mylanta Plus Xs) 15 ml PRN AFTMEALHC PRN PO DYSPEPSIA 11/11/21 15:15 Magnesium Hydroxide (Milk Of Magnesia) 2,400 mg PRN QHS PRN PO CONSTIPATION 11/11/21 15:15 Aripiprazole (Abilify) 10 mg HS PO 11/11/21 21:00 11/19/21 21:00 DC 11/19/21 20:06 Aspirin (Aspirin Chewable) 81 mg DAILY PO 11/12/21 09:00 11/28/21 08:05 Cetirizine HCl (ZyrTEC) 10 mg DAILY PO 11/12/21 09:00 11/28/21 08:06 Duloxetine HCl (Cymbalta) 60 mg BID PO 11/11/21 21:00 11/16/21 18:51 DC 11/16/21 08:01 Levetiracetam (Keppra) 500 mg BID PO 11/11/21 21:00 11/28/21 17:10 Levothyroxine Sodium (Synthroid) 100 mcg DAILY06 PO 11/12/21 06:00 11/28/21 05:59 Senna/Docusate Sodium (Senna Plus) 1 tab BID PO 11/11/21 21:00 11/28/21 17:10 Calcium Carbonate/ Glycine (Tums) 500 mg PRN Q4HRS PRN PO INDIGESTION 11/11/21 15:45 Diphenhydramine HCl (Benadryl) 25 mg PRN Q6HRS PRN PO ALLERGIES 11/11/21 15:45 11/23/21 20:28 Metformin HCl (Glucophage) 1,000 mg BIDWMEALS PO 11/12/21 17:30 11/28/21 17:10 Pantoprazole Sodium (Protonix) 40 mg DAILYAC PO 11/12/21 07:30 11/28/21 08:06 Rivaroxaban (Xarelto) 20 mg DAILY PO 11/12/21 09:00 11/28/21 08:06 Selenium Sulfide (Selsun) 1 erik WEEKLY TP 11/13/21 09:00 11/27/21 09:00 Linagliptin (Tradjenta) 5 mg DAILY PO 11/12/21 09:00 11/28/21 08:05 Nystatin (Nystop) 1 erik BID TP 11/11/21 21:00 11/13/21 17:18 DC 11/12/21 08:31 Trazodone HCl (Desyrel) 50 mg PRN QHS PRN PO insomnia 11/12/21 17:15 Vitamin D (Vitamin D3) 50,000 unit WEEKLY PO 11/12/21 18:00 11/26/21 09:00 Nystatin (Mycostatin) 1 erik BID TP 11/13/21 21:00 11/28/21 21:00 Cefdinir (Omnicef) 300 mg BID PO 11/15/21 21:00 11/21/21 22:00 DC 11/21/21 20:05 Lactobacillus Rhamnosus (Culturelle) 1 cap BID PO 11/16/21 21:00 11/28/21 17:10 Duloxetine HCl (Cymbalta) 60 mg DAILY PO 11/17/21 09:00 11/26/21 10:14 DC 11/26/21 08:34 Bupropion HCl (Wellbutrin Xl) 150 mg DAILY PO 11/17/21 09:00 11/17/21 16:39 DC 11/17/21 08:37 Bupropion HCl (Wellbutrin Xl) 300 mg DAILY PO 11/20/21 09:00 11/20/21 18:51 DC Bupropion HCl (Wellbutrin) 75 mg 0900,1200 PO 11/18/21 09:00 11/20/21 20:00 DC 11/20/21 12:05 Bupropion HCl (Wellbutrin) 150 mg 0900,1200 PO 11/21/21 09:00 11/26/21 10:56 DC 11/26/21 08:33 Aripiprazole (Abilify) 10 mg DAILYWSUP PO 11/20/21 17:00 11/28/21 17:10 Duloxetine HCl (Cymbalta) 40 mg DAILY PO 11/27/21 09:00 11/28/21 08:07 Bupropion HCl (Wellbutrin) 225 mg DAILY PO 11/27/21 09:00 11/28/21 08:06 Bupropion HCl (Wellbutrin) 150 mg 1200 PO 11/26/21 12:00 11/28/21 12:00 Insulin Glargine (Lantus Syringe) 10 unit QHS SQ 11/28/21 21:00 11/28/21 21:23 Current Medications Medications (Trade) Dose Ordered Sig/Ro Route PRN Reason Start Time Stop Time Status Last Admin Dose Admin Insulin Glargine (Lantus Syringe) 10 unit QHS SQ 11/28/21 21:00 11/28/21 21:23 I have reviewed the current psychotropics carefully including drug interactions. Risk benefit ratio favors no change other than as noted in my dictated progress note. Diagnosis: Problems: (1) Schizoaffective disorder, bipolar type (2) Impulse control disorder, unspecified (3) Anxiety disorder, unspecified (4) Major depressive disorder with psychotic features PILY MARQUEZ MD Nov 28, 2021 22:10
--- NOTE | 2021-11-28 23:18 | PN ---
DATE: 11/28/2021 SUBJECTIVE: The patient is a 71-year-old female patient whom I have seen today at the nursing staff request as her blood sugar was noted to be high. She is already on high dose of metformin 1000 mg twice a day and Tradjenta 5 mg daily. Her hemoglobin A1c was high at 8.7. She is now more compliant with her medications and despite being here for quite a while now, her blood sugar consisted to be high. PHYSICAL EXAMINATION: GENERAL: When I examined her, she looked well and was clearly in no apparent respiratory distress. There is no pallor, jaundice, cyanosis or thyromegaly. No jugular venous distention. No limb edema. VITAL SIGNS: Her heart rate was 74, blood pressure 100/59, temperature 97, respiratory rate was 17 and oxygen saturation was 95% on room air. The rest of her exam is stable. LABORATORY DATA: Her most recent white cell count was 9400, hemoglobin 12, hematocrit 37, MCV 88 and platelet count of 221,000. Her chemistry showed a serum sodium of 139, potassium 4.2, chloride 104, bicarbonate 25, anion gap of 10, BUN 18, creatinine 1, estimated GFR was 55 mL per minute. Her glucose was 121, however, looking at her glucose values, her blood sugar ranges between 150-200, although normally her morning blood sugar is low at around 108, although the values are not consistent. MEDIATIONS: She is currently on metformin 1000 mg twice a day and linagliptin for Tradjenta 5 mg once a day. PLAN: My plan is to start her on Lantus 10 units subcutaneous at bedtime and monitor her blood sugar. CASEY DR: Maliha TID: [id number]
[2021-11-29] MEDS: LEVOTHYROXINE 100 MCG TABLET PO SCH (05:52)
[2021-11-29 06:11] VITALS: BP 90/55
--- NOTE | 2021-11-29 06:43 | PDOC ---
Exam Note: Lewis Note: This note is a late entry for 11/25/2021 covers elements not covered in my initial note. Subjective: The patient was seen individually on 11/25/2021, discussed and reviewed the chart with Perlita MUELLER. The patient slept 9-1/2 hours previous night. She has been doing little better, more interactive, other times w ithdrawn, little more social, smiling per nursing report. I met with her in her room. She was lying in bed but interactive. Review of Systems: No CV, , pulmonary, eye, ENT system symptoms on review. Mental Status Exam: The patient is oriented to herself and situation. Speech has some latency. Abstraction fair. Computation impaired. Language function intact. Attention span short. Mood and affect somewhat withdrawn. No suicidal or homicidal ideation. Laboratory Data: Reviewed. Impression: Schizoaffective disorder, bipolar type, depressed, in partial remission. Mild cognitive impairment. Anxiety disorder unspecified. Impulse control disorder unspecified. Plan: No change from initial note. Assessment: Vital Signs/I&O: Vital Signs Date Time Temp Pulse Resp B/P (MAP) Pulse Ox O2 Delivery O2 Flow Rate FiO2 11/29/21 06:11 98.6 74 12 90/55 (67) 95 11/28/21 15:38 Room Air I & O 11/28/21 11/28/21 11/29/21 15:00 23:00 07:00 Intake Total 620 ml 240 ml Balance 620 ml 240 ml Labs: Laboratory Tests Test 11/28/21 07:40 Glucose (Fingerstick) 125 mg/dL (70-99) H Current Medications: Meds: Current Medications Medications (Trade) Dose Ordered Sig/Ro Route PRN Reason Start Time Stop Time Status Last Admin Dose Admin Insulin Glargine (Lantus Syringe) 10 unit QHS SQ 11/28/21 21:00 11/28/21 21:23 I have reviewed the current psychotropics carefully including drug interactions. Risk benefit ratio favors no change other than as noted in my dictated progress note. Diagnosis: Problems: (1) Schizoaffective disorder, bipolar type (2) Impulse control disorder, unspecified (3) Anxiety disorder, unspecified (4) Major depressive disorder with psychotic features PILY MARQUEZ MD Nov 29, 2021 06:43
--- NOTE | 2021-11-29 06:59 | PDOC ---
Exam Note: Lewis Note: This note is a late entry for 11/28/2021 covers elements not covered in my initial note. Subjective: The patient was seen individually on 11/28/2021, discussed and reviewed the chart with Mariah MUELLER. She slept 10 hours previous night. She does come out for meals, otherwise, stays withdrawn in her room, has been extremely irritable, snarky per nursing report. Review of Systems: No CV, , pulmonary, eye, ENT system symptoms on review. Reliability varies. Mental Status Exam: The patient is more awake, alert, interactive but somewhat sedated as I met with her this evening. Speech coherent. Often response is monosyllabic. Abstraction fair. Computation impaired. Language function intact. Mood and affect withdrawn. Laboratory Data: Reviewed. Impression: Schizoaffective disorder, bipolar type, depressed, in partial remission. Mild cognitive impairment. Anxiety disorder unspecified. Impulse control disorder unspecified. Plan: No change from initial note. Assessment: Vital Signs/I&O: Vital Signs Date Time Temp Pulse Resp B/P (MAP) Pulse Ox O2 Delivery O2 Flow Rate FiO2 11/29/21 06:11 98.6 74 12 90/55 (67) 95 11/28/21 15:38 Room Air I & O 11/28/21 11/28/21 11/29/21 15:00 23:00 07:00 Intake Total 620 ml 240 ml Balance 620 ml 240 ml Labs: Laboratory Tests Test 11/28/21 07:40 Glucose (Fingerstick) 125 mg/dL (70-99) H Current Medications: Meds: Current Medications Medications (Trade) Dose Ordered Sig/Ro Route PRN Reason Start Time Stop Time Status Last Admin Dose Admin Insulin Glargine (Lantus Syringe) 10 unit QHS SQ 11/28/21 21:00 11/28/21 21:23 I have reviewed the current psychotropics carefully including drug interactions. Risk benefit ratio favors no change other than as noted in my dictated progress note. Diagnosis: Problems: (1) Schizoaffective disorder, bipolar type (2) Impulse control disorder, unspecified (3) Anxiety disorder, unspecified (4) Major depressive disorder with psychotic features PILY MARQUEZ MD Nov 29, 2021 06:59
[2021-11-29] MEDS: RIVAROXABAN 10 MG TABLET. PO SCH (08:19)
[2021-11-29] MEDS: CETIRIZINE HCL 10 MG TABLET PO SCH (08:21)
[2021-11-29] MEDS: buPROPion 75 MG TABLET PO SCH ×2 (08:21→11:20)
[2021-11-29] MEDS: metFORMIN 500 MG TABLET PO SCH ×2 (08:21→17:14)
[2021-11-29] MEDS: DULoxetine HCL 20 MG CAPSULE.DR PO SCH (08:21)
[2021-11-29] MEDS: ASPIRIN CHEWABLE 81 MG TABLET. PO SCH (08:21)
[2021-11-29] MEDS: LINAGLIPTIN 5 MG TABLET PO SCH (08:21)
[2021-11-29] MEDS: LACTOBACILLUS RHAMNOSUS GG 1 CAPSULE. PO SCH ×2 (08:21→19:51)
[2021-11-29] MEDS: PANTOPRAZOLE 40 MG TABLET. PO SCH (08:21)
[2021-11-29] MEDS: levETIRAcetam 500 MG TABLET PO SCH ×2 (08:21→19:51)
[2021-11-29] MEDS: SENNOSIDES/DOCUSATE 8.6/50MG TABLET. PO SCH ×2 (08:21→19:51)
[2021-11-29] MEDS: NYSTATIN 100,000 UNIT/GM TOPICAL CREAM 15GM TUBE. TP SCH ×2 (08:22→20:24)
[2021-11-29 15:51] VITALS: BP 97/67
[2021-11-29] MEDS: ARIPiprazole 10 MG TABLET PO SCH (17:14)
[2021-11-29] MEDS: INSULIN GLARGINE SYRINGE. SQ SCH (20:22)
--- NOTE | 2021-11-29 21:44 | PDOC ---
Exam Note: Lewis Note: Please also refer to the separate dictated note~for this date of service dictated separately.~Patient seen individually. Discussed the patient with Nursing staff reviewed the chart.~Reviewed interim history and current functioning. Reviewed vital signs,~Labs/ Radiology~and current medications noted below. Continue current treatment with the changes noted in the dictated addendum note Assessment: Vital Signs/I&O: Vital Signs Date Time Temp Pulse Resp B/P (MAP) Pulse Ox O2 Delivery O2 Flow Rate FiO2 11/29/21 15:51 97.3 72 16 97/67 (77) 96 11/28/21 15:38 Room Air I & O 11/28/21 11/28/21 11/29/21 15:00 23:00 07:00 Intake Total 620 ml 240 ml Balance 620 ml 240 ml Labs: Laboratory Tests Test 11/29/21 07:53 Glucose (Fingerstick) 104 mg/dL (70-99) H Current Medications: Meds: Laboratory Tests Test 11/29/21 07:53 Glucose (Fingerstick) 104 mg/dL Current Medications Medications (Trade) Dose Ordered Sig/Ro Route PRN Reason Start Time Stop Time Status Last Admin Dose Admin Acetaminophen (Tylenol) 650 mg PRN Q6HRS PRN PO MILD PAIN / TEMP > 100.3'F 11/11/21 15:15 Multi-Ingredient Ointment (Analgesic [place]) 1 erik PRN QID PRN TP MUSCLE PAIN 11/11/21 15:15 Al Hydroxide/Mg Hydroxide (Mylanta Plus Xs) 15 ml PRN AFTMEALHC PRN PO DYSPEPSIA 11/11/21 15:15 Magnesium Hydroxide (Milk Of Magnesia) 2,400 mg PRN QHS PRN PO CONSTIPATION 11/11/21 15:15 Aripiprazole (Abilify) 10 mg HS PO 11/11/21 21:00 11/19/21 21:00 DC 11/19/21 20:06 Aspirin (Aspirin Chewable) 81 mg DAILY PO 11/12/21 09:00 11/29/21 08:21 Cetirizine HCl (ZyrTEC) 10 mg DAILY PO 11/12/21 09:00 11/29/21 08:21 Duloxetine HCl (Cymbalta) 60 mg BID PO 11/11/21 21:00 11/16/21 18:51 DC 11/16/21 08:01 Levetiracetam (Keppra) 500 mg BID PO 11/11/21 21:00 11/29/21 19:51 Levothyroxine Sodium (Synthroid) 100 mcg DAILY06 PO 11/12/21 06:00 11/29/21 05:52 Senna/Docusate Sodium (Senna Plus) 1 tab BID PO 11/11/21 21:00 11/29/21 19:51 Calcium Carbonate/ Glycine (Tums) 500 mg PRN Q4HRS PRN PO INDIGESTION 11/11/21 15:45 Diphenhydramine HCl (Benadryl) 25 mg PRN Q6HRS PRN PO ALLERGIES 11/11/21 15:45 11/23/21 20:28 Metformin HCl (Glucophage) 1,000 mg BIDWMEALS PO 11/12/21 17:30 11/29/21 17:14 Pantoprazole Sodium (Protonix) 40 mg DAILYAC PO 11/12/21 07:30 11/29/21 08:21 Rivaroxaban (Xarelto) 20 mg DAILY PO 11/12/21 09:00 11/29/21 08:19 Selenium Sulfide (Selsun) 1 erik WEEKLY TP 11/13/21 09:00 11/27/21 09:00 Linagliptin (Tradjenta) 5 mg DAILY PO 11/12/21 09:00 11/29/21 08:21 Nystatin (Nystop) 1 erik BID TP 11/11/21 21:00 11/13/21 17:18 DC 11/12/21 08:31 Trazodone HCl (Desyrel) 50 mg PRN QHS PRN PO insomnia 11/12/21 17:15 Vitamin D (Vitamin D3) 50,000 unit WEEKLY PO 11/12/21 18:00 11/26/21 09:00 Nystatin (Mycostatin) 1 erik BID TP 11/13/21 21:00 11/29/21 20:24 Cefdinir (Omnicef) 300 mg BID PO 11/15/21 21:00 11/21/21 22:00 DC 11/21/21 20:05 Lactobacillus Rhamnosus (Culturelle) 1 cap BID PO 11/16/21 21:00 11/29/21 19:51 Duloxetine HCl (Cymbalta) 60 mg DAILY PO 11/17/21 09:00 11/26/21 10:14 DC 11/26/21 08:34 Bupropion HCl (Wellbutrin Xl) 150 mg DAILY PO 11/17/21 09:00 11/17/21 16:39 DC 11/17/21 08:37 Bupropion HCl (Wellbutrin Xl) 300 mg DAILY PO 11/20/21 09:00 11/20/21 18:51 DC Bupropion HCl (Wellbutrin) 75 mg 0900,1200 PO 11/18/21 09:00 11/20/21 20:00 DC 11/20/21 12:05 Bupropion HCl (Wellbutrin) 150 mg 0900,1200 PO 11/21/21 09:00 11/26/21 10:56 DC 11/26/21 08:33 Aripiprazole (Abilify) 10 mg DAILYWSUP PO 11/20/21 17:00 11/29/21 17:14 Duloxetine HCl (Cymbalta) 40 mg DAILY PO 11/27/21 09:00 11/29/21 08:21 Bupropion HCl (Wellbutrin) 225 mg DAILY PO 11/27/21 09:00 11/29/21 08:21 Bupropion HCl (Wellbutrin) 150 mg 1200 PO 11/26/21 12:00 11/29/21 11:20 Insulin Glargine (Lantus Syringe) 10 unit QHS SQ 11/28/21 21:00 11/29/21 20:22 I have reviewed the current psychotropics carefully including drug interactions. Risk benefit ratio favors no change other than as noted in my dictated progress note. Diagnosis: Problems: (1) Schizoaffective disorder, bipolar type (2) Impulse control disorder, unspecified (3) Anxiety disorder, unspecified (4) Major depressive disorder with psychotic features PILY MARQUEZ MD Nov 29, 2021 21:44
[2021-11-30] MEDS ORDERED: CHOL500021 PO (02:31)
[2021-11-30] MEDS ORDERED: DULO20CA50 PO (02:32)
[2021-11-30] MEDS ORDERED: INSU100I13 SQ (02:35)
[2021-11-30] MEDS ORDERED: LACT1CAP21 PO (02:38)
[2021-11-30] MEDS ORDERED: TROL86CR TP (02:40)
[2021-11-30] MEDS ORDERED: MAG-115 PO (02:41)
[2021-11-30] MEDS ORDERED: NYST15CR TP (02:43)
[2021-11-30] MEDS ORDERED: BUPR75TA6 PO (02:47)
[2021-11-30] MEDS ORDERED: BUPR100T11 PO (02:48)
[2021-11-30] MEDS ORDERED: TRAZ-120 PO (02:50)
[2021-11-30] MEDS: LEVOTHYROXINE 100 MCG TABLET PO SCH (05:40)
[2021-11-30 06:25] VITALS: BP 115/74
--- NOTE | 2021-11-30 07:20 | PDOC ---
Exam Note: Lewis Note: This note is a late entry for 11/29/2021 covers elements not covered in my initial note. Subjective: The patient was seen individually on 11/29/2021, discussed and reviewed the chart with Bri MUELLER. Per nursing report she was little more interactive, more alert. Subjectively she feels she is less depressed. Review of Systems: No CV, , pulmonary, eye, ENT system symptoms on review. Mental Status Exam: The patient is more awake, alert. Speech coherent. Abstraction fair. Computation impaired. Language function intact. Mood and affect withdrawn. Laboratory Data: Reviewed. Impression: Schizoaffective disorder, bipolar type, depressed, in partial remission. Mild cognitive impairment. Anxiety disorder unspecified. Impulse control disorder unspecified. Plan: No change from initial note. Transition back to correction tomorrow. Assessment: Vital Signs/I&O: Vital Signs Date Time Temp Pulse Resp B/P (MAP) Pulse Ox O2 Delivery O2 Flow Rate FiO2 11/30/21 06:25 97.1 73 18 115/74 (88) 95 Room Air I & O 11/29/21 11/29/21 11/30/21 15:00 23:00 07:00 Intake Total 240 ml 120 ml Balance 240 ml 120 ml Labs: Laboratory Tests Test 11/29/21 07:53 Glucose (Fingerstick) 104 mg/dL (70-99) H Current Medications: I have reviewed the current psychotropics carefully including drug interactions. Risk benefit ratio favors no change other than as noted in my dictated progress note. Diagnosis: Problems: (1) Schizoaffective disorder, bipolar type (2) Impulse control disorder, unspecified (3) Anxiety disorder, unspecified (4) Major depressive disorder with psychotic features (5) Schizoaffective disorder PILY MARQUEZ MD Nov 30, 2021 07:20
[2021-11-30] MEDS: CETIRIZINE HCL 10 MG TABLET PO SCH (08:06)
[2021-11-30] MEDS: buPROPion 75 MG TABLET PO SCH ×2 (08:07→12:07)
[2021-11-30] MEDS: RIVAROXABAN 10 MG TABLET. PO SCH (08:07)
[2021-11-30] MEDS: metFORMIN 500 MG TABLET PO SCH (08:07)
[2021-11-30] MEDS: ASPIRIN CHEWABLE 81 MG TABLET. PO SCH (08:07)
[2021-11-30] MEDS: LINAGLIPTIN 5 MG TABLET PO SCH (08:07)
[2021-11-30] MEDS: LACTOBACILLUS RHAMNOSUS GG 1 CAPSULE. PO SCH (08:07)
[2021-11-30] MEDS: SENNOSIDES/DOCUSATE 8.6/50MG TABLET. PO SCH (08:07)
[2021-11-30] MEDS: PANTOPRAZOLE 40 MG TABLET. PO SCH (08:07)
[2021-11-30] MEDS: levETIRAcetam 500 MG TABLET PO SCH (08:07)
[2021-11-30] MEDS: DULoxetine HCL 20 MG CAPSULE.DR PO SCH (08:07)
[2021-11-30] MEDS: NYSTATIN 100,000 UNIT/GM TOPICAL CREAM 15GM TUBE. TP SCH (08:08)
--- NOTE | 2021-11-30 21:45 | PDOC ---
Exam Note: Lewis Note: Please also refer to the separate dictated note~for this date of service dictated separately.~Patient seen individually. Discussed the patient with Nursing staff reviewed the chart.~Reviewed interim history and current functioning. Reviewed vital signs,~Labs/ Radiology~and current medications noted below. Continue current treatment with the changes noted in the dictated addendum note Assessment: Vital Signs/I&O: Vital Signs Date Time Temp Pulse Resp B/P (MAP) Pulse Ox O2 Delivery O2 Flow Rate FiO2 11/30/21 06:25 97.1 73 18 115/74 (88) 95 Room Air I & O 11/29/21 11/29/21 11/30/21 15:00 23:00 07:00 Intake Total 240 ml 120 ml Balance 240 ml 120 ml Labs: Laboratory Tests Test 11/30/21 07:39 Glucose (Fingerstick) 107 mg/dL (70-99) H Current Medications: Meds: Laboratory Tests Test 11/30/21 07:39 Glucose (Fingerstick) 107 mg/dL Current Medications Medications (Trade) Dose Ordered Sig/Ro Route PRN Reason Start Time Stop Time Status Last Admin Dose Admin Acetaminophen (Tylenol) 650 mg PRN Q6HRS PRN PO MILD PAIN / TEMP > 100.3'F 11/11/21 15:15 11/30/21 14:09 DC Multi-Ingredient Ointment (Analgesic Webster) 1 erik PRN QID PRN TP MUSCLE PAIN 11/11/21 15:15 11/30/21 14:09 DC Al Hydroxide/Mg Hydroxide (Mylanta Plus Xs) 15 ml PRN AFTMEALHC PRN PO DYSPEPSIA 11/11/21 15:15 11/30/21 14:09 DC Magnesium Hydroxide (Milk Of Magnesia) 2,400 mg PRN QHS PRN PO CONSTIPATION 11/11/21 15:15 11/30/21 14:09 DC Aripiprazole (Abilify) 10 mg HS PO 11/11/21 21:00 11/19/21 21:00 DC 11/19/21 20:06 Aspirin (Aspirin Chewable) 81 mg DAILY PO 11/12/21 09:00 11/30/21 14:09 DC 11/30/21 08:07 Cetirizine HCl (ZyrTEC) 10 mg DAILY PO 11/12/21 09:00 11/30/21 14:09 DC 11/30/21 08:06 Duloxetine HCl (Cymbalta) 60 mg BID PO 11/11/21 21:00 11/16/21 18:51 DC 11/16/21 08:01 Levetiracetam (Keppra) 500 mg BID PO 11/11/21 21:00 11/30/21 14:09 DC 11/30/21 08:07 Levothyroxine Sodium (Synthroid) 100 mcg DAILY06 PO 11/12/21 06:00 11/30/21 14:09 DC 11/30/21 05:40 Senna/Docusate Sodium (Senna Plus) 1 tab BID PO 11/11/21 21:00 11/30/21 14:09 DC 11/30/21 08:07 Calcium Carbonate/ Glycine (Tums) 500 mg PRN Q4HRS PRN PO INDIGESTION 11/11/21 15:45 11/30/21 14:09 DC Diphenhydramine HCl (Benadryl) 25 mg PRN Q6HRS PRN PO ALLERGIES 11/11/21 15:45 11/30/21 14:09 DC 11/23/21 20:28 Metformin HCl (Glucophage) 1,000 mg BIDWMEALS PO 11/12/21 17:30 11/30/21 14:09 DC 11/30/21 08:07 Pantoprazole Sodium (Protonix) 40 mg DAILYAC PO 11/12/21 07:30 11/30/21 14:09 DC 11/30/21 08:07 Rivaroxaban (Xarelto) 20 mg DAILY PO 11/12/21 09:00 11/30/21 14:09 DC 11/30/21 08:07 Selenium Sulfide (Selsun) 1 erik WEEKLY TP 11/13/21 09:00 11/30/21 14:09 DC 11/27/21 09:00 Linagliptin (Tradjenta) 5 mg DAILY PO 11/12/21 09:00 11/30/21 14:09 DC 11/30/21 08:07 Nystatin (Nystop) 1 erik BID TP 11/11/21 21:00 11/13/21 17:18 DC 11/12/21 08:31 Trazodone HCl (Desyrel) 50 mg PRN QHS PRN PO insomnia 11/12/21 17:15 11/30/21 14:09 DC Vitamin D (Vitamin D3) 50,000 unit WEEKLY PO 11/12/21 18:00 11/30/21 14:09 DC 11/26/21 09:00 Nystatin (Mycostatin) 1 erik BID TP 11/13/21 21:00 11/30/21 14:09 DC 11/30/21 08:08 Cefdinir (Omnicef) 300 mg BID PO 11/15/21 21:00 11/21/21 22:00 DC 11/21/21 20:05 Lactobacillus Rhamnosus (Culturelle) 1 cap BID PO 11/16/21 21:00 11/30/21 14:09 DC 11/30/21 08:07 Duloxetine HCl (Cymbalta) 60 mg DAILY PO 11/17/21 09:00 11/26/21 10:14 DC 11/26/21 08:34 Bupropion HCl (Wellbutrin Xl) 150 mg DAILY PO 11/17/21 09:00 11/17/21 16:39 DC 11/17/21 08:37 Bupropion HCl (Wellbutrin Xl) 300 mg DAILY PO 11/20/21 09:00 11/20/21 18:51 DC Bupropion HCl (Wellbutrin) 75 mg 0900,1200 PO 11/18/21 09:00 11/20/21 20:00 DC 11/20/21 12:05 Bupropion HCl (Wellbutrin) 150 mg 0900,1200 PO 11/21/21 09:00 11/26/21 10:56 DC 11/26/21 08:33 Aripiprazole (Abilify) 10 mg DAILYWSUP PO 11/20/21 17:00 11/30/21 14:09 DC 11/29/21 17:14 Duloxetine HCl (Cymbalta) 40 mg DAILY PO 11/27/21 09:00 11/30/21 14:09 DC 11/30/21 08:07 Bupropion HCl (Wellbutrin) 225 mg DAILY PO 11/27/21 09:00 11/30/21 14:09 DC 11/30/21 08:07 Bupropion HCl (Wellbutrin) 150 mg 1200 PO 11/26/21 12:00 11/30/21 14:09 DC 11/30/21 12:07 Insulin Glargine (Lantus Syringe) 10 unit QHS SQ 11/28/21 21:00 11/30/21 14:09 DC 11/29/21 20:22 I have reviewed the current psychotropics carefully including drug interactions. Risk benefit ratio favors no change other than as noted in my dictated progress note. Diagnosis: Problems: (1) Schizoaffective disorder, bipolar type (2) Impulse control disorder, unspecified (3) Anxiety disorder, unspecified (4) Major depressive disorder with psychotic features PILY MARQUEZ MD Nov 30, 2021 21:45
--- NOTE | 2021-12-01 18:50 | DS ---
DATE OF DISCHARGE: 11/30/2021 DISCHARGE SUMMARY AND PSYCHIATRIC PROGRESS NOTE This is a late entry, date of service 11/30/2021, covers the elements not covered in my initial note. REASON FOR ADMISSION: Please refer to the admission history for details. Briefly, the patient is a 71-year-old female admitted by Dr. Fraser during my absence as a referral from [facility] on account of worsening symptoms of depression and the patient was staying in bed all day, refusing medications and cares, lacking motivation, not talking to others, depressed, hopeless, helpless, worthless, sleeping over 12 hours a day. She has a diagnosis of schizoaffective disorder, bipolar type and was depressed, had failed outpatient psychiatric interventions resulting in this referral. SIGNIFICANT FINDINGS AND CLINICAL COURSE: Following admission, the patient was seen daily individually by myself from a psychiatric standpoint, medical followup, Dr. Hernandez/Dr. Lenz. The patient remained depressed, withdrawn, paranoid. Adjustments were made in her psychotropics and she seemed to respond to a combination of Wellbutrin 225 mg 9:00 a.m., 150 mg noon; Cymbalta 40 mg a day and she remained on Keppra 500 mg b.i.d. for seizures and Abilify 10 mg a day to augment the antidepressants. Gradually mood appeared to improve. She is more interactive, still withdrawn, but much less so than before. She is pleasant, seemed cognitively much more intact. No suicidal or homicidal ideation prior to discharge. REVIEW OF SYSTEMS: Prior to discharge, no CV, , pulmonary, eye, ENT system symptoms on review. MENTAL STATUS EXAMINATION: Oriented to herself, situation. Speech has some latency, coherent, often responses monosyllabic. Abstraction fair. Computation impaired. Language function intact. Mood and affect is improved. CONDITION AT DISCHARGE: Improved. FINAL DIAGNOSES: Schizoaffective disorder, bipolar type, depressed, anxiety disorder, unspecified. Rest diagnosis unchanged from admission. DISCHARGE MEDICATIONS: Please refer to the MRAD. DISCHARGE INSTRUCTIONS: Outpatient psychiatric and medical followup at the [facility]. Time for discharge day management greater than 30 minutes. BRAVO/COLT DR: Celsa TID: [id number]
== END 2021-11-30 14:00 | DRG 885 ==
LOC: GEROPSY 13:10
PROVIDERS: ADMIT Psychiatry & Neurology Psychiatry; ATTEND Psychiatry & Neurology Psychiatry
DX: F25.0 Schizoaffective disorder, bipolar type (principal); E11.65 Type 2 diabetes mellitus with hyperglycemia; N39.0 Urinary tract infection, site not specified; E03.9 Hypothyroidism, unspecified; E78.1 Pure hyperglyceridemia; E78.5 Hyperlipidemia, unspecified; F09 Unspecified mental disorder due to known physiological condition; F41.9 Anxiety disorder, unspecified; F63.9 Impulse disorder, unspecified; G31.84 Mild cognitive impairment of uncertain or unknown etiology; G47.00 Insomnia, unspecified; I10 Essential (primary) hypertension; J44.9 Chronic obstructive pulmonary disease, unspecified; Z79.84 Long term (current) use of oral hypoglycemic drugs; Z79.899 Other long term (current) drug therapy; Z86.73 Personal history of transient ischemic attack (TIA), and cerebral infarction without residual deficits; Z88.2 Allergy status to sulfonamides; Z88.8 Allergy status to other drugs, medicaments and biological substances; Z91.010 Allergy to peanuts
CPT/HCPCS: 36415; 80053; 80061; 81001; 82306; 82607; 82947; 83036; 83540; 83550; 83735; 84436; 84439; 84443; 84480; 85025; 85379; 86592; 87086; 87186; 93005; J1815; Q0163